=== PATIENT | male | born 1950 | race Caucasian/White ===

== ENCOUNTER 2020-08-14 18:07 | Outpatient (REF) | payer MEDICARE, SELFPAY ==
[2020-08-14 22:14] LABS: Anion Gap 8.4 mmol/L (3-11); BUN 22 mg/dL (7-18); CO2 25.6 mmol/L (21.0-32.0); CREATININE 0.77 mg/dL (0.70-1.30); Calcium 9.5 mg/dL (8.5-10.1); Calculated LDL 131 mg/dL (<100); Chloride 104 mmol/L (98-107); Cholesterol 227 mg/dL (<200); Glucose 88 mg/dL (74-106); HDL Cholesterol 64 mg/dL (40-60); Potassium 3.9 mmol/L (3.5-5.1); Sodium 138 mmol/L (136-145); Triglyceride 163 mg/dL (<150)
[2020-08-15 17:32] LABS: PSA, Diagnostic 0.7 ng/mL (0.0-4.5)
== END 2020-08-14 18:27 ==
LOC: NCHCN 18:07
PROVIDERS: PCP Emergency Medicine; Visit Provider Emergency Medicine
DX: I10 Essential (primary) hypertension (principal); C61 Malignant neoplasm of prostate
CPT/HCPCS: 80048; 80061; 84153

== ENCOUNTER 2022-06-25 13:59 | Outpatient (REF) | payer MEDICARE, SELFPAY | END 2022-06-25 14:00 | disposition home or self-care (01) | LOC: LBN 13:59 | PROVIDERS: PCP Nurse Practitioner Family; Visit Provider Physician Assistant | DX: L98.8 Other specified disorders of the skin and subcutaneous tissue (principal); H60.391 Other infective otitis externa, right ear | CPT/HCPCS: 87077; 87070; 87186; 87205 ==

== ENCOUNTER 2023-11-26 01:34 | Outpatient (CLI) | payer MEDICARE, SELFPAY ==
[2023-11-26 13:02] LABS: Calculated LDL 115 mg/dL (<100); Cholesterol 187 mg/dL (<200); HDL Cholesterol 49 mg/dL (40-60); Triglyceride 119 mg/dL (<150)
== END 2023-11-26 01:35 | disposition home or self-care (01) ==
LOC: LOS 01:35
PROVIDERS: PCP Nurse Practitioner Family; Visit Provider Nurse Practitioner Family
DX: Z13.6 Encounter for screening for cardiovascular disorders (principal)
CPT/HCPCS: 36415; 80061; 84153

== ENCOUNTER → 2023-12-09 12:53 | Outpatient (CLI) | payer MEDICARE, SELFPAY ==
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
== END ==
PROVIDERS: PCP Nurse Practitioner Family; Visit Provider Nurse Practitioner Family
DX: M25.561 Pain in right knee (principal); M25.551 Pain in right hip
CPT/HCPCS: 73562; 73502

== ENCOUNTER → 2024-03-02 08:08 | Outpatient (BNVA) | payer MEDICARE, SELFPAY | PROVIDERS: PCP Nurse Practitioner Family; Referring Provider Nurse Practitioner Family; Visit Provider Student in an Organized Health Care Education/Training Program | DX: M17.11 Unilateral primary osteoarthritis, right knee (principal); M70.61 Trochanteric bursitis, right hip; Z96.641 Presence of right artificial hip joint; V19.3XXA Pedal cyclist (driver) (passenger) injured in unspecified nontraffic accident, initial encounter; R26.2 Difficulty in walking, not elsewhere classified | CPT/HCPCS: 99204 ==

== ENCOUNTER 2024-03-27 01:47 | Outpatient (CLI) | payer MEDICARE, SELFPAY ==
[2024-03-27 11:26] LABS: HCT 43.9 % (40.0-50.0); HGB 14.7 g/dL (13.5-17.5); MCH 30.7 pg (27.0-33.0); MCHC 33.5 % (32.0-36.0); MCV 92 fL (80-95); MPV 9.1 fL (8.0-11.0); Platelet Count 239 10^3/uL (130-400); RBC 4.79 10^6/uL (4.36-5.78); RDW 12.7 % (11.8-14.1); RDW-SD 43.1 fL; WBC 6.41 10^3/uL (4.4-10.8)
[2024-03-27 12:13] LABS: Anion Gap 8.1 mmol/L (3-11); BUN 18 mg/dL (7-18); CO2 25.9 mmol/L (21.0-32.0); CREATININE 0.8 mg/dL (0.70-1.30); Calcium 9.1 mg/dL (8.5-10.1); Chloride 103 mmol/L (98-107); Estimated GFR 94.03 (mL/min/1.73m2); Glucose 112 mg/dL (74-106); Sodium 137 mmol/L (136-145)
== END 2024-03-27 01:48 | disposition home or self-care (01) ==
LOC: LBO 01:48
PROVIDERS: PCP Nurse Practitioner Family; Visit Provider Student in an Organized Health Care Education/Training Program
DX: M17.11 Unilateral primary osteoarthritis, right knee (principal); Z01.818 Encounter for other preprocedural examination
CPT/HCPCS: 36415; 80048; 85027; 99024

== ENCOUNTER 2024-03-27 11:39 | Outpatient (CLI) | payer MEDICARE, SELFPAY ==
--- NOTE | 2024-03-27 10:00 | DI.RAD_ITS ---
Exam(s) XR STANDING ALIGNMENT XR KNEE RT 1V EXAM: XR STANDING ALIGNMENT CLINICAL HISTORY: PRE OP R TKA. TECHNIQUE: 2D digital imaging was performed. Standing AP views were performed from the pelvis throu gh the ankles. COMPARISON: CR XR KNEE RT 3V AP,LAT,DO from 12/09/2023 CR XR HIP RT COMPLETE AP PELVIS from 12/09/2023 CR XR KNEE RT 1V from 03/27/2024 FINDINGS: BONES: No acute fracture is present. No bony destructive lesion is seen. Leg length discrepancy: No significant overall leg length discrepancy. JOINTS: Knees: Severe degenerative changes noted at the lateral femoral tibial joint of the right kne e. Multiple joint space loose bodies. Mild narrowing of the medial femoral tibial joint space of th e left knee. The ankle joints show mild degenerative changes.. Bilateral hip prostheses again noted. SOFT TISSUE: Heterotopic calcification noted around both hips. IMPRESSION: Severe degenerative changes of the right knee.. No significant leg length discrepancy. DATA REPOSITORY: RADIATION DOSE DELIVERED:
== END 2024-03-27 11:40 | disposition home or self-care (01) ==
LOC: DIORS 11:39
PROVIDERS: PCP Nurse Practitioner Family; Visit Provider Student in an Organized Health Care Education/Training Program
DX: M17.11 Unilateral primary osteoarthritis, right knee (principal); Z01.818 Encounter for other preprocedural examination
CPT/HCPCS: 36415; 80048; 85027; 99024; 73560; 77073

== ENCOUNTER 2024-04-04 06:05 | Day surgery (SDC) | payer MEDICARE, SELFPAY ==
[2024-04-04 06:23] VITALS: BP 183/80; PULSE 60; RESP 16; TEMP 36.7; O2SAT 98
[2024-04-04 06:29] VITALS: BP 163/76; PULSE 60; RESP 16; O2SAT 96
[2024-04-04] MEDS: Gabapentin 300 MG CAP PO (06:42)
[2024-04-04] MEDS: Celecoxib 200 MG CAP 400 MG PO (06:42)
[2024-04-04] MEDS: Acetaminophen 500 MG TAB 1000 MG PO (06:42)
--- NOTE | 2024-04-04 06:53 | W.ANESPRE ---
General Info Date of Service Date Performed: 04/04/24 Height: 5 ft 9 in Weight: 95.708 kg Body Mass Index (BMI): 31.1 Surgical Procedure: Operation Date: 04/04/24 07:40 Proposed Procedure Side Surgeon p Knee Total Arthroplasty w/Orthalign Right Min More MD Meds Allergies and Home Medications Allergies Allergy/AdvReac Type Severity Reaction Status Date / Time losartan (Losartan) AdvReac Intermediate FATIGUE Verified 04/04/24 06:20 Home Medication ?Medication ?Instructions ?Recorded Unknown [No Known Home Meds] 10/21/23 Current Visit Medications: Current Medications Generic Name Dose Route Start Last Admin Trade Name Freq PRN Reason Stop Dose Admin Acetaminophen 1,000 mg 04/04/24 06:00 04/04/24 06:42 Acetaminophen 500 Mg Tab PO 04/04/24 18:00 1,000 mg PREOP ANDRZEJ Administration Celecoxib 400 mg 04/04/24 06:00 04/04/24 06:42 Celecoxib 200 Mg Cap PO 04/04/24 18:00 400 mg PREOP ANDRZEJ Administration Gabapentin 300 mg 04/04/24 06:00 04/04/24 06:42 Gabapentin 300 Mg Cap PO 04/04/24 18:00 300 mg PREOP ANDRZEJ Administration Ringer's Solution 1,000 mls @ 80 mls/hr 04/04/24 06:00 IV 05/03/24 23:59 INFUSION ANDRZEJ Cefazolin Sodium/Dextrose 2 gm in 50 mls @ 100 mls/hr 04/04/24 06:00 Ancef Duplex IVPB 04/04/24 18:00 PREOP ANDRZEJ Tranexamic Acid/Sodium Chloride 1,000 mg in 100 mls @ 600 mls/hr 04/04/24 06:00 IVPB 04/04/24 18:00 PREOP ANDRZEJ IV Miscellaneous Supplies 1 each 04/04/24 06:00 Iv Access IV 05/03/24 23:59 DIRECTED ANDRZEJ Sodium Chloride 0 ml 04/04/24 06:00 Normal Saline Flush 10 Ml Syr IV 05/03/24 23:59 PRN PRN Sodium Chloride 0 ml 04/04/24 06:00 Normal Saline 10 Ml Vial IJ 05/03/24 23:59 DIRECTED PRN Sterile Water 0 ml 04/04/24 06:00 Water,Injection,Sterile 10 Ml Vial IJ 05/03/24 23:59 DIRECTED PRN PFSH Active Problems Active Problems: Problem Status Onset Code Trochanteric bursitis, right hip Acute M70.61 Osteoarthritis of right knee Chronic M17.11 Essential hypertension Acute 08/01/13 I10 Migraine Acute G43.909 Medical History Medical History COVID-19 Osteoarthritis Bilateral hip replacements Medical History Comments:: Daily THC Surgical History Surgical History Status post appendectomy H/O bilateral hip replacements Tobacco Smoking/Tobacco Use Status: Never Passive smoking exposure: No Second hand exposure: Yes Alcohol Alcohol Intake: former Year quit: 2023 Substance Use Substance use: Daily Substance use type: marijuana Vital Signs and Lab Results Vital Signs Most Recent Vital Signs in EMR: Most Recent Vital Signs Temp Pulse Resp BP Pulse Ox 36.7 C 60 16 163/76 H 96 04/04/24 06:23 04/04/24 06:29 04/04/24 06:29 04/04/24 06:29 04/04/24 06:29 Lab Results Blood Type / Crossmatch: No Data to Display Complete Blood Count: White Blood Count 6.41 10^3/uL (4.4-10.8) 03/27/24 11:21 Red Blood Count 4.79 10^6/uL (4.36-5.78) 03/27/24 11:21 Hemoglobin 14.7 g/dL (13.5-17.5) 03/27/24 11:21 Hematocrit 43.9 % (40.0-50.0) 03/27/24 11:21 Platelet Count 239 10^3/uL (130-400) 03/27/24 11:21 Complete Metabolic Panel: Sodium 137 mmol/L (136-145) 03/27/24 11:21 Potassium 4.0 mmol/L (3.5-5.1) 03/27/24 11:21 Chloride 103 mmol/L (98-107) 03/27/24 11:21 Carbon Dioxide 25.9 mmol/L (21.0-32.0) 03/27/24 11:21 BUN 18 mg/dL (7-18) 03/27/24 11:21 Creatinine 0.8 mg/dL (0.70-1.30) 03/27/24 11:21 Est GFR (CKD-EPI 2020) 94.03 (mL/min/1.73m2) 03/27/24 11:21 Calcium 9.1 mg/dL (8.5-10.1) 03/27/24 11:21 Glucose 112 mg/dL (74-106) H 03/27/24 11:21 Liver Function Panel: No Data to Display Coagulation Panel: No Data to Display Cardiac Panel: No Data to Display Arterial Blood Gas: No Data to Display Venous Blood Gas: No Data to Display Pancreas Panel: No Data to Display Thyroid Panel: No Data to Display Infectious Disease: No Data to Display Blood Cultures: No Data to Display Toxicology Panel: No Data to Display Anesthesia Assessment and Plan Anesthesia History Personal History: No History of Anesthesia Complications Family History: No Family History of Anesthesia Complications Exercise Tolerance Exercise Tolerance: Metabolic Equivalents>4 Pertinent Negatives Pertinent Negatives: No Symptoms of GERD Cardiac & Pulmonary Exam Cardiac Exam: Normal S1/S2 Heart Sounds Pulmonary Exam: Clear Bilateral Breath Sounds Implantable Cardiac Device Does patient have a Pacemaker or an ICD?: No Airway Exam Known Difficult Airway: No Mallampati Class: 2 Mouth Opening: Normal (> 3cm) Thyromental Distance: Greater than 3 cm Neck Range of Motion: Full ROM Neck Circumference: Normal Teeth Condition: Normal Dentition ASA Classification ASA Score: ASA 2 Emergency Case?: No NPO Status NPO Status: NPO Clears >2 hours, Solids >8 hours Anesthesia Plan Resuscitation Status: Full Code Anesthesia Technique: Spinal Anesthesia Airway Planned: Natural Airway Pain Management: Surgeon and patient request nerve block Monitors Used: Standard Monitors
[2024-04-04 06:54] VITALS: BMI 31.1
--- NOTE | 2024-04-04 07:10 | DSE_ITS ---
Date of service: 04/04/24 Time of Service: 07:14 Discharge Plan Disposition Patient Disposition: Home Condition: Good Discharge Details Reason For Visit: Right knee DJD Attending Provider: Min More Primary Care Provider: Eddie Garza Home Meds and New Rx's Prescriptions: New celecoxib [Celebrex] 200 mg capsule 200 mg PO BID PRNQty: 60 0RF Rx Instructions: Take one tablet twice daily for pain and inflammation aspirin 81 mg tablet,delayed release (DR/EC) 81 mg PO BID 30 Days Qty: 60 0RF acetaminophen 500 mg tablet 1,000 mg PO Q8H PRN Qty: 90 0RF Rx Instructions: Take two tablets up to every 8 hours as needed for pain pantoprazole 40 mg tablet,delayed release (DR/EC) 40 mg PO DAILY Qty: 14 0RF dexamethasone 4 mg tablet 4 mg PO DAILY Qty: 2 0RF Rx Instructions: Take one tablet once daily for two days docusate sodium [Colace] 100 mg capsule 100 mg PO BID Qty: 30 0RF gabapentin 300 mg capsule 300 mg PO QHS Qty: 14 0RF Rx Instructions: Take one tablet at bedtime oxycodone 5 mg tablet 5 mg PO Q4H PRNQty: 18 0RF Rx Instructions: Take one tablet up to every 4 hours as needed for severe postoperative pain Discharge Instructions Additional Instructions: Total Knee Discharge Instructions Activity: The most important activity is to walk and to work on gentle motion (both flexion and extension). You should try to take short walks a few times a day. It is important that when resting you work on keeping the knee straight. Avoid putting a pillow behind the knee as this will encourage flexion. Work on range of motion exercises as provided by Physical Therapy. - Start outpatient physical therapy within 2 weeks. - You should wear the KENJI hose on both legs for 2 weeks. You may remove these at night. You may also use any compression sock in place of the KENJI hose. - Utilize [employer] to review exercises, see videos on exercises and obtain basic information pertaining to your surgery and your recovery. Dressing: Remove the Sanjay wrap by 2 days after your surgery and put on the KENJI stocking given to you from the hospital. Keep the surgical dressing (underneath the SANJAY wrap) in place for at least one week. After the first week it may be removed and replaced with light gauze and tape or nothing. The wound and dressing may get wet after 3 days but avoid soaking the dressing or otherwise it will need to be changed. Many people prefer covering the dressing with cling wrap (saran wrap) to minimize it from getting soaked. If it gets wet, just pat dry. If it starts to peel off then it will need to be changed. Medications: - You should take Tylenol and anti-inflammatory Celebrex as your primary pain control medications. If the Celebrex is too expensive or not covered, please call the office for another alternative (Advil/Ibuprofen or Naproxen/Aleve) - You have been prescribed a stronger pain medication Oxycodone for breakthrough pain, take as needed as prescribed. - You have also been prescribed a stomach acid reduction agent Pantoprozole to help reduce stomach acid and reflux. - You have been prescribed Gabapentin to take at night for restlessness and nerve pain. - You will be taking Aspirin 81mg twice a day for DVT prevention unless instructed otherwise. - You have also been prescribed Decadron to take to control post-operative nausea and pain. You will start this tomorrow. - If you have constipation you should take Colace (which has been prescribed) or Miralax (which is available [id number]). It takes most people 3-4 days to have a bowel movement. Follow-up: 2 weeks If you have any acute concerns or questions, please do not hesitate to contact the office at [phone]. You may contact Dr. More with any questions after hours through the hospital at [phone] or on his cell phone at [phone]. Stand Alone Forms: Anes.Nerve Block Instructions, Maddie Whitehead ([facility]) Referrals: Min More MD [ [facility] STAFF PHYSICIAN] - 04/17/24 10:15 am Equipment/Supplies: Walker Activity:: Elevate Remove Dressings/Wound Care:: Do Not Remove Shower/Bathe:: Cover Diet:: As Tolerated Discharge Orders Discharge Orders: Discharge Order (Routine); Ordered 04/04/24 Ordered By: Iveth Valentin Discharge Data Discharge Date/Time-TO BE ENTERED AT DEPARTURE: 04/04/24 11:40 DS: Summary Time Spent with Patient providing and/or coordinating discharge services: Less than 30 minutes Status at Discharge Functional status at discharge: uses cane/walker Overall status at discharge: patient is progressing back to baseline Mental Status: mental status grossly normal Speech and Movement: speech and movement normal Mood: congruent mood Affect: normal affect Quality:SDOH Health Related Social Needs: Health related social needs inadequate housing Health related social needs details none Exam Psych Mental Status: mental status grossly normal Speech and Movement: speech and movement normal Mood: congruent mood Affect: normal affect DS: Data Vitals/I&O Vitals and I&O: Vital Signs Temperature 98.1 F 04/04/24 06:23 Pulse 60 04/04/24 06:29 Pulse Rhythm Regular 04/04/24 06:23 Respiratory Rate 16 04/04/24 06:29 Respiratory Depth Normal 04/04/24 06:23 Blood Pressure 163/76 H 04/04/24 06:29 Blood Pressure Mean 105 04/04/24 06:29 Blood Pressure Position Supine 04/04/24 06:29 Pulse Oximetry 96 04/04/24 06:29 Oxygen Delivery Method Room Air 04/04/24 06:29 Oxygen Flow Rate 0 04/04/24 06:29 Pain Level 0 04/04/24 06:23 Intake & Output 04/03/24 04/03/24 04/04/24 11:59 23:59 11:59 Weight 211 lb 211 lb PFSH All Active Problems (Updated 04/05/24 @ 09:40 by Clem Conrad RN) History of total right knee replacement (Acute 04/04/24) Trochanteric bursitis, right hip (Acute) Essential hypertension (Acute 08/01/13) Does not want treatment Migraine (Acute) resolved - discontinued ETOH use ~7 months Medical History (Updated 04/05/24 @ 09:40 by Clem Conrad RN) COVID-19 Osteoarthritis Bilateral hip replacements Surgical History (Updated 04/05/24 @ 09:40 by Clem Conrad RN) Status post appendectomy H/O bilateral hip replacements Family History Mother , 70'S No problems noted. Father , LATE 80'S No problems noted. Sister No problems noted. Sister Alcohol abuse Substance abuse Sister No problems noted. Son No problems noted. Social History (Updated 10/29/23 @ 10:25 by Marcelina Ordonez Smoking/Tobacco Use Status: Never Second Hand Exposure: Yes Smoking risk assessment performed?: Yes Alcohol Intake: former Year quit: 2023 Drug use: Daily Substance use type: marijuana Caregiver/Support person: No Household members: spouse Housing: house Communication Needs: None Do you need help understanding health information?: Never Pets and animals: Yes Pets and animals: cat(s) and dog(s) Sexually active: Yes Do you think of yourself as: straight/heterosexual Current gender identity: male What is your relationship status?: How often do you talk on the phone with friends or family?: three or more times per week How often do you get together with friends or relatives?: three or more times per week Do you belong to any clubs or organized social groups?: no Panel score (0-1 are the most socially isolated patients): 2 What type of physical activity do you participate in: walking and bicycling Duration: 60-90 minutes/day Frequency: 3-4 times per week Morena/Protestant: No preference Special morena needs: No Seatbelt use: always Helmet use: Yes Helmet use: always Drive intox or ride 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
[2024-04-04] MEDS: Lactated Ringers 1,000 ML 80 ML IV (07:15)
[2024-04-04 07:19] VITALS: BP 161/70; PULSE 58; RESP 15; TEMP 36.2; O2SAT 98
[2024-04-04] MEDS: ceFAZolin 2 GM/50 ML BAG IVPB (07:29)
[2024-04-04] MEDS: TRANEXAMIC ACID/SOD. CHL. 1,000 MG/100 ML BAG 600 MG IVPB (07:40)
--- NOTE | 2024-04-04 08:06 | W.ANESNERVE ---
Nerve Block Single Injection Procedure Date and Time Date Performed: 04/04/24 Procedure Start: 07:10 Location Where Procedure Performed Procedure Location: Day Surgery Unit Reason Performed: Postoperative Analgesia Requesting Provider: Min More Timeout Performed Timeout Performed: Yes Monitoring Used ECG, Blood Pressure, SpO2 and See EMR for corresponding vital signs Sterility Sterility: Hand Hygiene, Surgical Cap, Surgical Mask, Sterile Gloves and Chlorhexidine Sedation Given During Procedure Sedation Given (Indicate Dose Given): No Sedation given Patient Mental Status Patient Mental Status: Awake Nerve Block 1st Nerve Block: Laterality: Right Block Type: Adductor Canal Ultrasound Image Saved?: Yes Needle / Catheter Used: 100mm SonoPlex II Local Anesthetic Bolus (Indicate Dose Given): Lidocaine used for local infiltration of skin, Injected in 3-5ml increments after negative blood aspiration, Bupivacaine 0.25% Dose:: 10ml and Exparel Dose:: 10ml Additives (Indicate Dose Given): None Ultrasound: Sterile probe cover and gel used Nerve Stimulator: Not Used Paresthesia: None Procedure Tolerated: No Complications and Patient tolerated well Procedure Outcome: Successful Performed By: Antoni House
[2024-04-04 09:25] VITALS: BP 173/67; PULSE 53; RESP 16; TEMP 36.3; O2SAT 98
--- NOTE | 2024-04-04 09:35 | W.PM.OP ---
Date of service: 04/04/24 Time of Service: 07:35 Operative Note Operative Note DATE OF PROCEDURE: 04/04/24 PRE-OP DIAGNOSIS: Right Knee Arthritis POST-OP DIAGNOSIS: same PROCEDURE: Right Total Knee Arthroplasty with Intraoperative Navigation SURGEON: Min More FINANCIAL AID COORDINATOR: Iveth Valentin ANESTHESIA TYPE: Spinal Refer to Anesthesia Record ESTIMATED BLOOD LOSS: 150 PATHOLOGY: none sent COMPLICATIONS: None Patient was transported to: PACU Patient's condition: stable Implants: 1. Depuy Attune Cruciate Retaining Femoral Component, Size 8 2. Depuy Attune Fixed Bearing Tibial Component, Size 8 3. Depuy Attune 8x6 CR, FB Poly 4. Depuy Attune Patellar Component, Size 38 Indications: I have seen Bong in clinic for symptoms of knee arthritis, confirmed with radiographic findings. He has exhausted nonoperative methods and was having significant limitations in daily function and desired better function and less pain. I discussed the technical details of a knee replacement. I explained the risks of the procedure to include, but not limited to, bleeding, infection, pain, stiffness, fracture, damage to nerves and vessels, damage to muscles and tendons, loosening, need for repeat procedure, blood clot and cardiopulmonary demise. Despite these risks, Bong elected to proceed. Findings: There was significant signs of arthritis throughout the knee involving all 3 compartments with notable wear posterolaterally. Procedure Description: Bong was greeted in the preoperative holding area where the correct side was identified and marked. The consent was reviewed with the patient and signed. The history and physical was updated. All questions were answered. Preoperative mediacations were administered: Acetaminophen 1000mg, Celebrex 400mg, Gabapentin 300mg, and Oxycontin 10mg. An adductor canal block was then administered by the anesthesia team in the [facility]. He was taken back to the operating room. A spinal anesthestic was then administered. The patient was placed into the supine position on the operating room table. A nonsterile tourniquet was placed high onto the leg but only used for cementing. Posts were placed for positioning during the procedure. All bony prominences were well padded. Prophylactic antibiotics in the form of Cefazolin were administered. 1g of Tranxemic Acid was given intravenously within 30 minutes of incision. The right leg was then prepped with Chloraprep and draped in a standard fashion with impervious stockinette and extremity drape with Iodine impregnated skin protection. A timeout to confirm correct identity, side and site, procedure, allergies, anesthesia, and medical concerns was performed. With the knee in some flexion, a midline incision was made overlying the knee. Full thickness skin flaps were raised once the extensor mechanism was encountered. These were raised medially and laterally. Any bleeding was controlled with electrocautery. Once the extensor mechanism was fully exposed, a medial parapatellar arthrotomy was performed in a flexed position. All bleeding from the arthrotomy and the geniculate arteries was coagulated. A medial subperiosteal peel was performed with electrocautery to the midcoronal plane. The fat pad was removed while keeping the patellar tendon protected. The anterior distal femur synovium was removed for later visualization. The ACL and PCL were resected and the anterior horn of the lateral meniscus was transected. The knee was then flexed with the patella everted. Large osteophytes from the tibia were removed. Large osteophytes from the femur were removed. A single starting pin was then placed 1cm anterior to the PCL insertion and the notch in the direction of the femoral head. The OrthoAlign device was applied over the pin. It was oriented to be in line with the epicondylar axis and the trochlear groove. It was then pinned into place. The navigation computer was then turned on and calibrated. The distal femur cut was set at 0.5 degrees varus and 3.5 degrees flexion. The distal femur cutting guide then was positioned for a 9mm cut. The distal femur was cut with an oscillating saw while protecting the soft tissues. The tibia was then addressed. The OrthoAlign device was placed over the tibial tubercle and medial tibia and secured into position. Once again, OrthoAlign was calibrated and then set for a 0 degree varus/valgus cut and 5.5 degrees of posterior slope. With this locked into position, the cut thickness stylus was used to assess cut thickness. The posterolateral side, most involved side, was set for a 4mm cut. This was then held in position and pinned into place with 2 additional pins and a cross pin for stability. The medial and lateral collateral ligaments were protected and the cut was performed. With this completed, it was assessed and noted to be of appropriate dimensions. The guide and OrthoAlign was removed. A spacer block was inserted and the knee was brought into extension. The 6mm spacer block provided full extension, without hyperextension and with stability of both the medial and lateral collateral ligaments was assessed. The pins from the femur and the tibia were then removed. The Ortholign balancing device then was utilized. This showed a balance In extension of 18 mm. The knee was brought up into flexion where there was noted to be a balance gap of about 13 mm. Thus the posterior cut was set to 5 mm and pins were placed with the implant specific jig. The distal femur was then sized. The anterior stylus was placed onto the lateral ridge of the anterior femur. This indicated a size 8 femur. The external rotation of the guide was adjusted to 3 degrees to match the epicondylar axis, perpendicular to Power?s line. The 4-in-1 cutting guide was the placed. The posterior medial femur cut was evaluated and appeared of good thickness. The spacer block was inserted underneath the cutting guide and stability was confirmed in 90 degrees of flexion. An mikey wing was used to confirm appropriate position of the anterior cut to avoid notching. This cutting guide was ensured to be flush on the cut surface and then pinned into place with headed pins. While protecting the soft tissues, quad tendon, and collateral ligaments, the anterior and posterior cuts were performed with a saw. The central two pins were removed and the posterior and anterior chamfers were cut next. The notch-cutting guide was placed. This was pinned to lateralize the femoral component as much as possible while keeping it flush on the cut surface. This was then pinned into position. A reciprocating saw was used to make the notch cut. A rasp smoothed the cut surfaces. A trial posterior stabilized femoral component was then inserted, impacted down to the cut surfaces, and the lug holes were drilled. A provisional trial tibial component was placed and the knee was brought through range of motion. There was noted to be excellent extension and flexion. There was no significant instability. The patella was tracking without thumbs. The tibial cut surface was fully exposed. The medial and lateral menisci were removed. The tibia was then sized as a 4. The tibia had been previously marked during trialing to correspond to the center of the tibial component to help with rotation. The trial was aligned to this candis, approximately rotated to the medial 1/3rd of the tibial tubercle. The trial was pinned into place. The tibia was prepared with a reamer and a keel punch. The knee was then brought into extension and the patella was measured as 28mm. Using the patellar clamp and cut guide, this was resected to a flat surface with at least 13mm of thickness remaining. The size 38 patella fit the best. This was oriented and then clamped into position. The lugs were drilled. The trial components were removed. The final components, except for the polyethylene were opened on the back table. The periosteal and capsular tissues, especially posteriorly, around the knee were then systematically injected with a periarticular cocktail consisting of 246mg of Ropivacaine, 0.5mg of Epinephrine, 0.08mg of Clonidine, and 30mg of Ketorolac, diluted to 100cc. The tourniquet was then inflated to 275mmHg. The knee was thoroughly irrigated with a pulse lavage and dried. On the back table, with the implants opened, the cement was mixed. 2 batches of antibiotic laden cement were prepared with vacuum assistance. After the cement was ready a small amount was placed on to the back side of the tibial component at the keel. A small amount was placed onto the posterior flange of the femur. Cement was manual pressurized and impregnated into the cut surface of the tibia. The tibial component was then inserted into the cut surface and impacted into position. Excess cement was removed and the component was reimpacted. Again, excess cement was removed and our attention was then turned to the femur. The femoral cut surface was once again dried and cement was manually impacted into the cut surface. The femoral component was lined with the lug holes and impacted. Excess cement was removed. It was ensured to be down against the cut surface. The trial polyethylene was then inserted and the leg was brought out into full extension for the duration of the cement curing process, approximately 15min. Cement was lastly manually impacted into the cut surface of the patella and the patellar button was clamped into position and held. During this process attention was turned to the gutters of the knee and for all interfaces for any excess cement. The knee was then thoroughly irrigated with Surgiphor Betadine solution. It was allowed to sit in the knee for 3 minutes before being irrigated out with saline. After the cement had finally cured, approximately 15min, the clamp was removed from the patella and the knee was taken through range of motion. A size 6mm polyethylene component provided the best range of motion and stability with less than 2mm gapping with medial and lateral stress and full extension without significant hyperextension. The patella was tracking with a no-thumbs technique. The trial poly was removed and once again the knee was checked for any loose, excess, or errant cement. The poly component was then inserted into position after cleaning and drying the tibial tray. The capsule was then reapproximated with a No. 1 Vicryl at multiple locations. The capsule was finally closed with a No. 2 Stratafix, barbed suture. The tourniquet was then released and the arthrotomy appeared watertight without significant bleeding. The second dosing of 1g TXA was started. Deep tissues were then reapproximated with 0 Vicryl and 2-0 Vicryl. The skin was closed with a running 3-0 Monocryl in a subcuticular fashion. This was reinforced with skin glue. A Mepilex silver dressing was applied along with a [id number] BEBE wrap. A CryoCuff was applied. Bong was transferred to the hospital bed without difficulty an suffering no apparent complication. He has a good prognosis. Physical therapy will start today and without restrictions, weight-bearing as tolerated. Aspirin 81mg BID will be used for DVT prophylaxis.
[2024-04-04 10:00] VITALS: BP 176/73; PULSE 54; RESP 17; TEMP 36.3; O2SAT 97
--- NOTE | 2024-04-04 11:06 | IN_ITS ---
PT Notes Visit Reasons: Right knee DJD Physical Therapy Day Surgery Initial Evaluation Date:04-04-2024 Referring Doctor: Dr More PT Orders: PT CONSULT: PT eval s/p Ortho surgery Precautions: Standard, Activity as tolerated Patient Profile/Admitting Diagnosis: Pt is 73 yo male referred s/p elective rig ht TKA by Dr More on 04-04-24 with only local block anesthetic. Post op uncomplicated. PMHX: R hip trochanteric bursitis, HTN, Migraine, OA right knee Social History/Home Situation:lives with in split level home with 3 sets of 6 steps with 1 rail to enter. He is an avid cyclist, very active. Pt independent without AD ambulation, independent ADL, driving. assists with cooking independent yard work. Equipment Owned/DME: crutches and cane Subjective: Pt reports he was awake for the surgery and it went well. He reports some discomfort in his right dorsal foot. (located at seam of the clover wrap. Nursing re wrapped the clover with positive effect) Objective: General Observation: awake alert male semireclined on stretcher with cryocuff in place. at bedside. Pt agreeable to participate. Mental Status: A+ OX4 Pain: right knee 2/10 ROM: BUE and LLE : WNL Right Lower Extremity: hip and ankle WNL; knee 3-102 degrees Strength: [] Right Upper Extremity: 5/5 Left Upper Extremity: 5/5 Right Lower Extremity: hip and ankle >3/5, Quad strong quad set, limited SLR x 10 without lag, hamstring 3-/5 Left Lower Extremity: 5/5 Sensation: intact throughout except right knee diminished to light touch dull feeling Bed Mobility/Transfers: Supine to sit Independent Sit to stand Independent Stand to sit Independent Bed to chair Independent Gait: Independent with SPC , crutch or FWW 200 feet reciprocal pattern demonstrating diminished knee flexion right during swing phase, early heel off on right Balance: [] Static Sitting: Normal Dynamic Sitting: Normal Static Standing: Good + Dynamic Standing: Good Special Tests: [] Mobility Limitations Standardized Measure [] [facility] AM-PAC 6 clicks Basic Mobility Inpatient Short Form: [] Raw Score: 24 CMS Score: 0 % Informed Consent/Education: Patient instructed in purpose of PT consult. Packet containing TKA exercise protocol has been given to patient. Education and training on initial set of exercises that can be done at home have been completed with patient. Pt instructed to utilize crutches at home then progress to cane as appropriate. Assessment: Patient presents with clinical signs and symptoms consistent with current/admitting diagnoses that have resulted to mobility limitations, gait instability, generalized weakness, and impairment of motor control as demonstrated by the following impairment level findings: 1. Decreased strength to right knee major muscle groups 2. Impaired standing balance 3. Limitation of joint range of motion in right knee Impairments are contributing to the following functional limitations: 1. Inability to safely ambulate without assistive device 2. Increase completion time for mobility ADL performance 3. Increased fall risk Patient is assessed as amoderate complexity based on the following: History: 73-year-old male with impairment level findings, functional limitations, and past medical history as indicated above Examination: Demonstrable impairment in strength, balance, and mobility level with underlying impairments and functional limitations as documented above Presentation: stable Decision Making: low Goals: N/A. Plan of Care/Treatment Plan: N/A. DISCHARGE RECOMMENDATIONS: Home with Outpatient PT as scheduled TREATMENT CODE/TIME: 29754, [id number]/ [id number] Thank you for the opportunity to participate in the care of this patient. Please sign an return this page within 30 days if you agree with the above POC. Thank you! Physician Signature Date [facility]
--- NOTE | 2024-04-04 11:35 | W.ANESPOSTOP ---
Postoperative Evaluation Date, Time and Location Date Performed: 04/04/24 Time Performed: 10:05 Patient Location: Day Surgery Unit Vital Signs Most Recent Imported Vital Signs: Most Recent Vital Signs Temp Pulse Resp BP Pulse Ox 36.3 C L 54 L 17 176/73 H 97 04/04/24 10:00 04/04/24 10:00 04/04/24 10:00 04/04/24 10:00 04/04/24 10:00 Pain Score Most Recent Pain Score: Most Recent Pain Score Pain Level 0 04/04/24 10:00 Assessment Mental Status: Awake (Alert & Oriented to Patient Baseline) Airway and Respiratory Function: Patent airway with normal (patient baseline) respiratory exam Cardiovascular Function: Hemodynamically Stable Hydration Status: Adequately Hydrated Nausea & Vomiting: No Nausea or Vomiting Pain: Pt. Denies Any Pain Peripheral Nerve Block: Regional nerve block not resolved at time of post operative discharge
== END 2024-04-04 11:40 | disposition home or self-care (01) ==
PROVIDERS: PCP Nurse Practitioner Family; Visit Provider Student in an Organized Health Care Education/Training Program
PROC: (CPT 27447; principal; 2024-04-04 07:30)
DX: M17.11 Unilateral primary osteoarthritis, right knee (principal); I10 Essential (primary) hypertension; G43.909 Migraine, unspecified, not intractable, without status migrainosus
CPT/HCPCS: 20985; 27447; 76942; 97162; 97530; C1776; C9290; J0665; J0690; J1100; J2250; J2401; J2405

== ENCOUNTER 2024-04-17 11:48 | Outpatient (CLI) | payer MEDICARE, SELFPAY ==
--- NOTE | 2024-04-17 10:15 | DI.RAD_ITS ---
Exam(s) XR KNEE RT 1V XR STANDING ALIGNMENT EXAM: XR STANDING ALIGNMENT and XR knee RT 1 V CLINICAL HISTORY: 1ST POST OP S/P R TKA. TECHNIQUE: 2D digital imaging was performed. Five images were obtained. COMPARISON: CR XR STANDING ALIGNMENT from 03/27/2024 CR XR KNEE RT 1V from 03/27/2024 FINDINGS: BONES: Patient has bilateral total hip replacements. The patient now has a right total knee replacem ent. The orthopedic hardware appears in good position. No suspicious lucencies are seen about the o rthopedic hardware. There is an enthesophyte at the anterior patella. Moderate degenerative changes are seen in the left knee characterized by joint space narrowing and osteophytes. The findings are most marked in the medial femoral tibial joint. The ankles are well maintained.There is no significa nt leg length discrepancy. SOFT TISSUE: There is soft tissue swelling around the right knee likely reflecting the recent joint r eplacement. Vascular calcifications are present. IMPRESSION: Right total knee replacement. DATA REPOSITORY: RADIATION DOSE DELIVERED:
== END 2024-04-17 11:49 | disposition home or self-care (01) ==
LOC: DIORS 11:48
PROVIDERS: PCP Nurse Practitioner Family; Referring Provider Nurse Practitioner Family; Visit Provider Student in an Organized Health Care Education/Training Program
DX: Z96.651 Presence of right artificial knee joint (principal); Z47.1 Aftercare following joint replacement surgery
CPT/HCPCS: 99024; 73560; 77073

== ENCOUNTER → 2024-05-15 08:25 | Outpatient (BNVA) | payer MEDICARE, SELFPAY | PROVIDERS: PCP Nurse Practitioner Family; Referring Provider Nurse Practitioner Family; Visit Provider Student in an Organized Health Care Education/Training Program | DX: Z47.1 Aftercare following joint replacement surgery (principal); Z96.651 Presence of right artificial knee joint | CPT/HCPCS: 99024 ==

== ENCOUNTER → 2024-06-26 08:28 | Outpatient (BNVA) | payer MEDICARE, SELFPAY | PROVIDERS: PCP Nurse Practitioner Family; Referring Provider Nurse Practitioner Family; Visit Provider Student in an Organized Health Care Education/Training Program | DX: Z47.1 Aftercare following joint replacement surgery (principal); Z96.651 Presence of right artificial knee joint | CPT/HCPCS: 99024 ==

== ENCOUNTER 2024-12-13 02:22 | Outpatient (CLI) | payer MEDICARE, SELFPAY ==
[2024-12-13 13:05] LABS: Calculated LDL 133 mg/dL (<100); Cholesterol 196 mg/dL (<200); HDL Cholesterol 48 mg/dL (>or=40); Hemoglobin A1C 5.3 % (<5.7); Triglyceride 77 mg/dL (<150)
[2024-12-13 20:07] LABS: PSA, Screening 0.8 ng/mL (<=6.5)
== END 2024-12-13 02:23 | disposition home or self-care (01) ==
LOC: LOS 02:23
PROVIDERS: PCP Nurse Practitioner Family; Visit Provider Nurse Practitioner Family
DX: Z13.6 Encounter for screening for cardiovascular disorders (principal); Z13.1 Encounter for screening for diabetes mellitus; Z12.5 Encounter for screening for malignant neoplasm of prostate
CPT/HCPCS: 36415; 80061; 84153; 83036

== ENCOUNTER 2025-03-19 04:46 | Inpatient (IN) | payer MEDICARE, SELFPAY ==
[2025-03-19] VITALS (49 sets, daily range): BP systolic 123–159; BP diastolic 47–70; PULSE 60–79; RESP 15–28; TEMP 36.3–36.4; O2SAT 88–97
--- NOTE | 2025-03-19 04:45 | RT.EKG_ITS ---
APPROVED REPORT Exam: Resting ECG Reason for Exam: Chest pain Patient Location: E HR:79 bpm ECG Measurements Heart Rate 79 AXIS OH 219 P -4 QRSd 80 QRS 12 QT 368 T 24 QTc 421 Conclusion Sinus rhythm...normal P axis, V-rate 60- 99 Borderline prolonged OH interval...OH >212, V-rate 50- 90 Anterior infarct, old...Q >40mS, abnormal ST-T, V2-V5 Normal [place] No acute ST changes
--- NOTE | 2025-03-19 04:50 | ED.GENADUL_ITS ---
Discharge Plan Discharge Details Chief Complaint: Chest/Rib Primary Care Provider: Eddie Garza ED Provider: Yon Zuñiga [place] Meds and New Rx's Prescriptions: No Action celecoxib [Celebrex] 200 mg capsule 200 mg PO BID PRN (Reason: pain) Qty: 60 1RF Rx Instructions: Take one tablet twice daily for pain and inflammation HPI General Mode of arrival: ambulatory . Date/Time Provider Initiated Documentation: 03/19/25 04:50 . Limitations to Documentation: no limitations . Information obtained by: patient and RN notes reviewed . HPI Narrative: Patient presents to ED with right lateral lower chest pain. Patient reports pain began last evening. He has been very uncomfortable and had difficulty sleeping. Pain is worse with breathing but not really with movement. Does not feel like he is getting a full breath. He reports having an illness that began around 08 March. He reports having headache, fatigue, weakness, abdominal discomfort and constipation. Did not really have cough, congestion, shortness of breath with that. He was actually bedridden for about 5 days. Finally started feeling better over the weekend. He then developed this pain last night. Denies having any real abdominal pain, nausea or vomiting. Denies any left-sided chest pain or radiation of his pain. Related Data Home Medications ?Medication ?Instructions ?Recorded ?Confirmed celecoxib 200 mg capsule (Celebrex) 200 mg PO BID PRN pain #60 caps 07/26/24 10/25/24 Previous Rx's ?Medication ?Instructions ?Recorded celecoxib 200 mg capsule (Celebrex) 200 mg PO BID PRN pain #60 caps 07/26/24 Allergies Allergy/AdvReac Type Severity Reaction Status Date / Time losartan (Losartan) AdvReac Intermediate FATIGUE Verified 03/19/25 04:56 Exam Narrative Exam Narrative: Const: WDWN male in NAD. VS per triage. HEENT: NC/AT. Normal facial exam. Neck: Supple. Trachea midline. Lungs: Normal respiratory effort. Lungs are clear. Cor: RRR without murmur. Good radial pulses. No chest wall tenderness. GI: Soft/ND/NT. Neuro: A+O x 3. Normal speech, mentation, gait. Cranial nerves II - XII grossly intact. No gross motor or sensory deficit. Ext: No C/C/E. No calf tenderness. Medical Decision Making Patient presenting to ED with right lateral lower chest pain. Pain is pleuritic in nature. His vital signs are reassuring. His lungs are clear. No real tenderness in the right upper quadrant at least not consistently. Just getting over some sort of illness that laid him up in bed for a while. Pain is nonradiating. Denies having any GI symptoms. An EKG was obtained at triage. This is sinus rhythm with borderline prolonged PA, no acute ST changes per my read. I would have concern for PE, pneumonia given recent illness. Less likely seems to be gallbladder related. Also less likely to be kidney related. Will place IV and obtain labs including troponin and abdominal labs. Will proceed with CTA of the chest as well as CT abdomen/pelvis given the area of his pain. Took NSAID prior to coming in so we will give IV acetaminophen and fluids. Patient's laboratory studies significant for white count of 12.8, hemoglobin 12.7, normal platelets at 322. His VBG shows some mild hyperventilation with a pH of 7.44 and pCO2 of 36. Lactate is normal at 1. Chemistries and liver function unremarkable. Initial troponin positive at 715. Received a call from radiology with CT report. Patient noted to have bilateral pulmonary emboli at the subsegmental level. There is no evidence of right heart strain. Also has some groundglass opacities present as well. There is also areas of decreased enhancement in the left kidney which potentially could represent infarcts versus pyelonephritis versus neoplasm. Patient's urinalysis is completely normal. A Fluvid is negative. His repeat troponin is relatively flat at 733. I have started him on a heparin drip. He remains hemodynamically stable and seems comfortable after the IV acetaminophen. Discussed with hospitalist. Consult placed to [facility]. Patient will be signed out to oncoming ED provider Dr. Benitez pending consult and disposition. Lab Data Lab results reviewed: Yes I reviewed the patient's lab results. Lab results narrative: see [facility] ECG Data Attestation: I personally reviewed and interpreted this ECG (s) as follows: Prior ECG tracings: not available for review Interpretation: see EKG/[facility] PFSH All Active Problems Trochanteric bursitis, right hip (Acute) Essential hypertension (Acute 08/01/13) Does not want treatment Migraine (Acute) resolved - discontinued ETOH use ~7 months Medical History COVID-19 Osteoarthritis Bilateral hip replacements Surgical History History of total right knee replacement (04/04/24) Status post appendectomy H/O bilateral hip replacements Family History (Updated 10/25/24 @ 11:04 by Malenakayleen Davis) Mother , age 72 No problems noted. Father , age 87 No problems noted. Sister No problems noted. Sister Alcohol abuse Substance abuse Sister No problems noted. Son No problems noted. Maternal Grandmother , age 96 No problems noted. Maternal Grandfather , age 50 Tuberculosis Paternal Grandmother , age 75 No problems noted. Paternal Grandfather , age 67 No problems noted. Social History Smoking/Tobacco Use Status: Former Tobacco Use Quit Date: 07/19/89 Second Hand Exposure: Yes Smoking risk assessment performed?: Yes Alcohol Intake: former Year quit: 2023 Drug use: Daily Substance use type: marijuana Counseling given: No Adopted: No Caregiver/Support person: No Household members: spouse Housing: house Number of Children: 3 number of grandchildren: 7 Communication Needs: None Education Level: college Details: two years Do you need help understanding health information?: Rarely current occupation: Retired<3 Pets and animals: Yes Pets and animals: cat(s) and dog(s) Sexually active: Yes Do you think of yourself as: straight/heterosexual Current gender identity: male What is your relationship status?: How often do you talk on the phone with friends or family?: twice per week How often do you get together with friends or relatives?: twice per week How often do you attend mosque or church services?: 1-3 times per year Do you belong to any clubs or organized social groups?: no Panel score (0-1 are the most socially isolated patients): 2 What type of physical activity do you participate in: bicycling and other Details: skiing Duration: 60-90 minutes/day Frequency: 3-4 times per week Morena/Tenriism: [employer] Special morena needs: No Agree to transfusion: Yes Seatbelt use: always Helmet use: Yes Helmet use: always 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
--- NOTE | 2025-03-19 05:00 | DI.CT_ITS ---
Exam(s) CT CHEST PE ABD PELVIS W EXAM: CT CHEST PE ABD PELVIS W CLINICAL HISTORY: right side chest/abd pain. TECHNIQUE: Imaging Protocol: Axial CT angiography was performed with multi- slice acquisition and multi-planar and/or 3D reconstructions. Computer aided detection (CAD) was utilized. CONTRAST MATERIAL: Intravenous: Omnipaque 350contrast volume:100 mL COMPARISON: No exams were available for comparison FINDINGS: There is artifact in the pelvis from the patient's bilateral total hip arthroplasties. CHEST: Tracheobronchial tree: Patent where visualized. No evidence of bronchiectasis. Pulmonary parenchyma: There are areas of consolidation seen in the lower lobes bilaterally. There are ground-glass opacities in the lungs predominantly involving the lower lobes. Pulmonary Arteries: There are filling defects seen in branches of the pulmonary arteries to the lower lobes bilaterally consistent with pulmonary emboli. There is no saddle embolus. Mediastinum and Angie: No dominant adenopathy or fluid collection. The esophagus is unremarkable. There is a small hiatal hernia. Visualized thyroid gland: Unremarkable. Pleura: There is a small right pleural effusion. No significant left pleural effusion. No pneumothorax is present. Heart: The heart is enlarged. The RV to LV ratio is less than 1. Coronary artery calcifications are present. No pericardial effusion. Aorta: The ascending thoracic aorta measures 4.1 x 4.3 cm. Atherosclerotic calcification is present. No evidence of dissection. Bones: Within normal limits for the patient's age. There are degenerative changes seen in the shoulders bilaterally. Soft tissues: Incidental note is made of a 4.1 x 5.5 cm lipoma posterior to the left scapula. ABDOMEN: Liver: Normal density. No measurable mass. Portal, Superior Mesenteric, and Splenic Veins: Unremarkable. Gallbladder and Biliary Tract: No radiodense calculus or dilation. Pancreas: Normal density, no abnormal calcifications or inflammatory process. Spleen: Normal. Adrenals: No masses seen. Kidneys: There is a wedge-shaped area of decreased enhancement in the mid left kidney. There is mild stranding in the perinephric fat on the left. No radiodense stones or obstructive uropathy. No masses seen. Abdominal Aorta: Abdominal portion non-dilated. Atherosclerotic calcification is present. Bowel: There is diverticulosis in the colon without evidence of acute diverticulitis. There is no evidence of bowel wall thickening or bowel obstruction. There is no evidence of appendicitis. There is a small hiatal hernia. Peritoneal Cavity: No ascites, collection or mesenteric inflammatory response. No free air. Lymph Nodes: Within normal limits. Bones: Within normal limits for the patient's age. There is marked central spinal canal stenosis at L4-L5. Patient has bilateral total hip arthroplasties Soft Tissues: There is a small fat containing umbilical hernia. There is a small fat containing right inguinal hernia. PELVIS: Bladder: Symmetric distention, no gross wall thickening. Reproductive Organs: Unremarkable as visualized. Lymph Nodes: Within normal limits. Bones: Within normal limits. IMPRESSION: 1. Which she area of decreased attenuation in the left kidney. Differential considerations include renal infarcts versus pyelonephritis. Neoplasm cannot be definitely excluded. 2. Colonic diverticulosis without evidence of acute diverticulitis. 3. Marked central spinal canal stenosis at L4-L5 secondary to the degenerative changes. 4. Bilateral lower lobe pulmonary emboli. The RV to LV ratio is less than 1. 5. Bilateral pulmonary infiltrates. Differential considerations include atelectasis, pneumonia, pulmonary edema or possible pulmonary infarct. 6. The preliminary [facility] report was reviewed. RADIATION DOSE DELIVERED: 673.83mGy.cm Total DLP DATA REPOSITORY: All CT scans at this facility are submitted to the National Radiology Data Registry (NRDR) Dose Index Registry (DIR) with the [employer] (ACR). RADIATION OPTIMIZATION: All CT scans at this facility use at least one of these dose optimization techniques: automated exposure control; mA and/or kV adjustment per patient size (includes targeted exams where dose is matched to clinical indication); or iterative reconstruction.
[2025-03-19 05:21] LABS: BE (Venous) 0 mmol/L (-2-3); HCO3 (Venous) 24 mmol/L (23-28); O2 Sat (Venous) 95 %; TCO2 (Venous) 22 mmol/L (24-29); pCO2 (Venous) 36 mmHg (41-51); pO2 (Venous) 68 mmHg
[2025-03-19 05:22] LABS: Abs Immature Grans 0.05 10^3/uL (0.0-0.06); HCT 37.7 % (40.0-50.0); HGB 12.7 g/dL (13.5-17.5); Immature Grans % 0.4 %; MCH 29.9 pg (27.0-33.0); MCHC 33.7 % (32.0-36.0); MCV 89 fL (80-95); MPV 8.7 fL (8.0-11.0); Platelet Count 322 10^3/uL (130-400); RBC 4.25 10^6/uL (4.36-5.78); RDW 12.6 % (11.8-14.1); RDW-SD 40.7 fL; WBC 12.76 10^3/uL (4.4-10.8)
[2025-03-19 05:42] LABS: ALT 42 U/L (16-63); AST 29 U/L (15-37); Albumin 3.4 g/dL (3.4-5.0); Alkaline Phosphatase 46 U/L (46-116); Anion Gap 8.5 mmol/L (3-11); BUN 20 mg/dL (7-18); Bilirubin, Total 0.6 mg/dL (0.2-1.0); CO2 26.5 mmol/L (21.0-32.0); Calcium 8.7 mg/dL (8.5-10.1); Chloride 101 mmol/L (98-107); Estimated GFR 90.18 (mL/min/1.73m2); Glucose 141 mg/dL (74-106); Lipase 44 U/L (<78); Magnesium 2.1 mg/dL (1.8-2.4); Potassium 4.2 mmol/L (3.5-5.1); Sodium 136 mmol/L (136-145); Total Protein 7.4 g/dL (6.4-8.2)
[2025-03-19 05:46] LABS: Troponin I 715 ng/L (<or=76)
[2025-03-19] MEDS: ACETAMINOPHEN 1,000 MG/100 ML BAG 400 MG IVPB (05:49)
[2025-03-19] MEDS: Normal Saline 500 ML IV (05:49)
[2025-03-19] MEDS: Omnipaque 350 MG/ML 100 ML BTL IJ (05:53)
[2025-03-19] MEDS: Normal Saline Flush 10 ML SYR IVP ×2 (05:54→13:36)
[2025-03-19] MEDS: Normal Saline - Diluent 50 ML VIAL IJ (05:54)
--- NOTE | 2025-03-19 06:33 | DI.[facility]_ITS ---
Addendum created by Yue Tucker MD on 03/19/2025 6:36:56 AM EDT: Correction: Please disregard the above reports. Reports should read as follows: CTA chest: Subsegmental pulmonary emboli in the lower lobes bilaterally. Multifocal ground-glass opacities in both lungs. Trace bilateral pleural effusions. No evidence for right heart strain. Coronary artery calcifications. Nonspecific mediastinal lymph nodes. Multiple rib deformities appear nonacute. Correlate clinically. Left chest wall lipoma incidentally noted. IMPRESSION: 1. Bilateral lower lobe subsegmental pulmonary emboli. 2. Multifocal ground-glass opacities in the lungs, may reflect underinflation, edema, or infection. Follow-up as clinically warranted. 3. Additional findings as above. 4. Additional studies dictated separately. 5. THIS REPORT CONTAINS FINDINGS THAT MAY BE CRITICAL TO PATIENT CARE. The findings were verbally communicated via telephone conference with NIKKY RAMÍREZ at 6:27 AM EDT on 03/19/2025. The findings were acknowledged and understood. CT abdomen/pelvis: Nonspecific mesenteric and retroperitoneal lymph nodes. Hiatal hernia. Hepatomegaly. Mild splenomegaly. Multiple areas of decreased enhancement in the left kidney with left perinephric stranding. No intestinal obstruction is evident. Fluid in nondilated small bowel, nonspecific. Retained fecal material is present in the colon. Colonic diverticula. Bilateral hip prostheses. Artifact limits evaluation of the surrounding tissues. Endplate deformities in the spine appear nonacute. Tiny fat containing umbilical hernia. Atherosclerotic changes in the aorta and its branches. No acute findings in the bladder, within the limitations noted above. CT scan of the chest dictated separately. IMPRESSION: 1. Multiple areas of decreased enhancement in the left kidney most suggestive of infarcts. Pyelonephritis is a differential consideration. Neoplasm cannot be definitively excluded. Clinical correlation and follow-up advised. 2. Additional findings as above. 3. Additional studies dictated separately. 4. THIS REPORT CONTAINS FINDINGS THAT MAY BE CRITICAL TO PATIENT CARE. The findings were verbally communicated via telephone conference with NIKKY RAMÍREZ at 6:27 AM EDT on 03/19/2025. The findings were acknowledged and understood. Initial report created on 03/19/2025 6:32:13 AM EDT: PROCEDURE INFORMATION: Exam: CTA Chest With Contrast Exam date and time: 03/19/2025 5:51 AM Age: 74 years old Clinical indication: Abdominal pain; Localized; Right-sided; Prior surgery; Surgery date: 6+ months; Surgery type: Appendectomy, bi lat hip replacements TECHNIQUE: Imaging protocol: Computed tomographic angiography of the chest with contrast. Exam focused on the arteries. Radiation optimization: All CT scans at this facility use at least one of these dose optimization techniques: automated exposure control; mA and/or kV adjustment per patient size (includes targeted exams where dose is matched to clinical indication); or iterative reconstruction. Contrast material: OMNIPAQUE 350; Contrast volume: 100 ml; Contrast route: INTRAVENOUS (IV); COMPARISON: No relevant prior studies are available for comparison. FINDINGS: Limitations: Artifact from bilateral hip prostheses limits evaluation of the surrounding tissues. Mild motion artifact. Pulmonary arteries: No pulmonary embolus appreciated. Aorta: No thoracic aortic aneurysm seen. Lungs: No focal consolidation seen. Pleural spaces: No pleural effusion. Heart: No pericardial effusion. Lymph nodes: Nonspecific mesenteric and retroperitoneal lymph nodes. Diaphragm: Tiny hiatal hernia. Liver: Hepatomegaly. Spleen: Mild splenomegaly. Kidneys: Multiple areas of decreased enhancement in the left kidney with left perinephric stranding. Intestine: No intestinal obstruction is evident. Fluid in nondilated small bowel, nonspecific. Retained fecal material is present in the colon. Colonic diverticula. Bones/joints: Bilateral hip prostheses. Artifact limits evaluation of the surrounding tissues. Endplate deformities in the spine appear nonacute. Soft tissues: Tiny fat containing umbilical hernia. Other findings: CT scan chest dictated separately. Vasculature: Atherosclerotic changes in aorta and its branches. Urinary bladder: No acute findings, within the limitations noted above. IMPRESSION: 1. Multiple areas of decreased enhancement in the left kidney most suggestive of infarcts. Pyelonephritis is a differential consideration. Neoplasm cannot be definitively excluded. Clinical correlation and follow-up advised. 2. Additional findings as above. 3. Additional studies dictated separately. 4. THIS REPORT CONTAINS FINDINGS THAT MAY BE CRITICAL TO PATIENT CARE. The findings were verbally communicated via telephone conference with NIKKY RAMÍREZ at 6:27 AM EDT on 03/19/2025. The findings were acknowledged and understood. PROCEDURE INFORMATION: Exam: CT Abdomen And Pelvis With Contrast Exam date and time: 03/19/2025 5:51 AM Age: 74 years old Clinical indication: Abdominal pain; Localized; Right-sided; Prior surgery; Surgery date: 6+ months; Surgery type: Appendectomy, bi lat hip replacements TECHNIQUE: Imaging protocol: Computed tomography of the abdomen and pelvis with contrast. Radiation optimization: All CT scans at this facility use at least one of these dose optimization techniques: automated exposure control; mA and/or kV adjustment per patient size (includes targeted exams where dose is matched to clinical indication); or iterative reconstruction. Contrast material: OMNIPAQUE 350; Contrast volume: 100 ml; Contrast route: INTRAVENOUS (IV); COMPARISON: No relevant prior studies available. FINDINGS: Limitations: Mild motion artifact. Lungs: Multifocal ground-glass opacities in both lungs. Pleural spaces: Trace bilateral pleural effusions. Heart: No evidence for right heart strain. Coronary arteries: Coronary artery calcifications. Liver: No focal hepatic lesion identified. Gallbladder and biliary ducts: No radiodense gallbladder calculi seen. Pancreas: No CT evidence for acute pancreatitis. Spleen: No splenomegaly. Adrenal glands: No mass. Kidneys and ureters: No hydronephrosis or evidence for pyelonephritis. Stomach and bowel: No intestinal obstruction is appreciated. Appendix: No evidence of appendicitis. Intraperitoneal space: CT scan of the abdomen and pelvis dictated separately. Vasculature: Subsegmental pulmonary emboli in the lower lobes bilaterally. Lymph nodes: Nonspecific mediastinal lymph nodes. Urinary bladder: No acute findings. Reproductive: No acute findings. Bones/joints: Multiple rib deformities appear nonacute. Correlate clinically. Soft tissues: Left chest wall lipoma incidentally noted. IMPRESSION: 1. Bilateral lower lobe subsegmental pulmonary emboli. 2. Multifocal ground-glass opacities in the lungs, may reflect underinflation, edema, or infection. Follow-up as clinically warranted. 3. Additional findings as above. 4. Additional studies dictated separately. 5. THIS REPORT CONTAINS FINDINGS THAT MAY BE CRITICAL TO PATIENT CARE. The findings were verbally communicated via telephone conference with NIKKY RAMÍREZ at 6:27 AM EDT on 03/19/2025. The findings were acknowledged and understood. Dictated and Authenticated by: Yue Tucker MD. Orderin Yogesh Marvin MD
[2025-03-19 06:40] LABS: COVID-19 PCR Negative (Negative); RSV PCR Negative (Negative)
[2025-03-19 06:44] LABS: Glucose Negative (Negative)
[2025-03-19 07:11] LABS: INR 1.0 (0.9-1.1); PTT Activated 27.6 sec (20.6-30.2); Prothrombin Time 10.4 sec (9.1-11.1)
[2025-03-19] MEDS: Heparin in 0.45% NaCl 25,000 UNIT/250 ML BAG 17.5 UNIT IVINF ×2 (07:11→18:31)
[2025-03-19 07:12] LABS: Troponin I 733 ng/L (<or=76)
--- NOTE | 2025-03-19 08:21 | ED.PROG_ITS ---
Date of service: 03/19/25 Time of Service: 08:21 Medical Decision Making I received signout on this 74-year-old male found to have multiple subsegmental PEs. His CAT scan also was concerning for the possibility of a renal infarct. [place] [facility] [place] He has myocardial injury based on his eleva sharon troponins. He is on a heparin drip and thus far has been hemodynamically stable. 9:45 AM I was in touch with Dr. Tapia who felt comfortable hospitalizing the patient locally. He advised a hypercoagulable workup which I initiated. Unfortunately patient's blood had to be redrawn as there is no longer tubes available. I ordered antiphospholipid, protein C protein S prothrombin and factor V Leiden levels. I also ordered an echocardiogram and renal ultrasound. Patient had had general malaise approximately 2 weeks ago prior to symptoms so I ordered a tickborne panel but will defer treatment as patient is not febrile at the moment and has no rash. I was in touch with Dr. Myrick who requested vascular consult in the event that there is an opportunity for repeat vascular. I reengaged with [facility] [place] consult. 10:10 AM I was in touch with [facility] [place]. The case had been relayed to Dr. Sher from vascular surgery. He requested that during the patient's hospitalization patient undergo at some point a CT angiogram of his chest abdomen and pelvis and that a referral be placed for urgent outpatient follow-up. There were no indications for tertiary care transfer. Will update Dr. Myrick and patient and family. 11 AM I was in touch with Dr. Myrick who graciously agreed to accept patient for hospitalization. Quality:SDOH Health Related Social Needs: Health related social needs details none Discharge Plan Disposition Patient Disposition: Admit to [facility] Discharge Details Clinical Impression: Myocardial injury, Pulmonary embolism, bilateral Admit Date/Time: 03/19/25 11:13 Admit Provider: Yon Myrick Attending Provider: Yon Myrick Primary Care Provider: Eddie Garza ED Provider: Miguel Benitez Discharge Data Discharge Date/Time-TO BE ENTERED AT DEPARTURE: 03/19/25 12:12 POCUS Exam (ED) Limited Cardiac Exam DATE OF EXAM: 03/19/25 TIME OF EXAM: 09:46 PROVIDER THAT PERFORMED THE STUDY: Miguel Benitez IS THIS A REPEAT EXAM DURING THIS ENCOUNTER: no REASON FOR EXAM: Right heart strain/PE VISUALIZED STRUCTURES: Four Chambers, Left ventricle and LVOT VIEW OBTAINED: Apical 4-Chamber, Parasternal long-axis and Subxiphoid PERTINENT FINDINGS/IMPRESSION: No pericardial effusion and No RV dilation DIFFERENTIAL DIAGNOSES: Aortic outflow track less than 4 cm, good squeeze, RV less than LV, no significant pericardial effusion. Exam complete
[2025-03-19 10:12] LABS: INR 1.1 (0.9-1.1); Prothrombin Time 10.9 sec (9.1-11.1)
[2025-03-19 11:07] LABS: Lab Add On Test DONE
[2025-03-19 12:54] LABS: Troponin I 536 ng/L (<or=76)
--- NOTE | 2025-03-19 13:20 | W.PC.ACHO ---
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) Status post appendectomy H/O bilateral hip replacements Most Recent Vital Signs Temperature 36.3 C L 03/19/25 12:08 Temperature Source Tympanic 03/19/25 04:49 Pulse 74 03/19/25 12:08 Pulse Rhythm Irregular 03/19/25 12:08 Pulse 66 03/19/25 11:50 Respiratory Rate 28 H 03/19/25 12:08 Respiratory Effort Normal, Non-Labored 03/19/25 12:08 Respiratory Depth Shallow 03/19/25 12:08 Respiratory Pattern Normal 03/19/25 12:08 Blood Pressure 148/60 H 03/19/25 12:08 Blood Pressure Mean 85 03/19/25 11:41 Blood Pressure Position Sitting 03/19/25 04:49 Pulse Oximetry 92 03/19/25 12:08 Oxygen Delivery Method Room Air 03/19/25 12:08 Oxygen Flow Rate 0 03/19/25 12:08 Pain Level 0 03/19/25 12:08 Comment pt unable to rate pain 03/19/25 04:49 Allergies losartan (Losartan) Adverse Reaction (Intermediate, Verified 03/19/25 04:56) FATIGUE Precautions Isolation Standard precaution 03/19/25 04:57 Active Medications Generic Name Dose Route Start Last Admin Trade Name Freq PRN Reason Stop Dose Admin Heparin Sodium/Sodium Chloride 25,000 unit in 250 mls @ 17.5 mls/hr 03/19/25 06:45 03/19/25 07:11 IVINF 1,750 units/hr INFUSION ANDRZEJ 17.5 mls/hr Protocol Administration 1,750 UNITS/HR Sodium Chloride 0 ml 03/19/25 05:32 03/19/25 05:54 Normal Saline Flush 10 Ml Syr IVP 10 ml PRN PRN Administration IV IV Catheter Type [Right Peripheral IV Forearm] IV Catheter Gauge [Right 20 Forearm] Diet Orders Category Date Time Status Regular/Normal [DIET] Nutrition 03/19/25 Lunch Active Diagnostics 03/19/25 03/19/25 03/19/25 Range/Units 14:17 13:15 12:23 WBC (4.4-10.8) 10^3/uL RBC (4.36-5.78) 10^6/uL Hgb (13.5-17.5) g/dL Hct (40.0-50.0) % MCV (80-95) fL MCH (27.0-33.0) pg MCHC (32.0-36.0) % RDW (11.8-14.1) % Plt Count (130-400) 10^3/uL MPV (8.0-11.0) fL Immature Gran % % Neutrophils % % Lymphocytes % % Monocytes % % Eosinophils % % Basophils % % Nucleated RBC % (0.0-0.3) % Absolute Neutrophils (1.2-6.7) 10^3/uL Absolute Lymphocytes (1.2-3.4) 10^3/uL Absolute Monocytes (0.1-0.8) 10^3/uL Absolute Eosinophils (0.0-0.7) 10^3/uL Absolute Basophils (0.0-0.2) 10^3/uL PT (9.1-11.1) sec INR (0.9-1.1) APTT Pending (20.6-30.2) sec Protein C Antigen Free Protein S Antigen Factor V Leiden Mutat Factor V Leiden Interp Factor V Leiden Rev By VBG pH (7.31-7.41) VBG pCO2 (41-51) mmHg VBG pO2 mmHg VBG HCO3 (23-28) mmol/L VBG Total CO2 (24-29) mmol/L VBG O2 Saturation % VBG Base Excess (-2-3) mmol/L VBG Lactate (<or=2.0) mmol/L Sodium (136-145) mmol/L Potassium (3.5-5.1) mmol/L Chloride (98-107) mmol/L Carbon Dioxide (21.0-32.0) mmol/L Anion Gap (3-11) mmol/L BUN (7-18) mg/dL Creatinine (0.70-1.30) mg/dL Est GFR (CKD-EPI 2020) (mL/min/1.73m2) Glucose (74-106) mg/dL Calcium (8.5-10.1) mg/dL Magnesium (1.8-2.4) mg/dL Total Bilirubin (0.2-1.0) mg/dL AST (15-37) U/L ALT (16-63) U/L Alkaline Phosphatase (46-116) U/L Troponin I Pending 536 H* (<or=76) ng/L Total Protein (6.4-8.2) g/dL Albumin (3.4-5.0) g/dL [id number] Lipase (<78) U/L Urine Color (Yellow) Urine Clarity (Clear) Urine pH (5-8) Ur Specific [place] (1.005-1.025) Urine Protein (Neg-Trace) mg/dL Urine Ketones (Negative) mg/dL Urine Blood (Negative) Urine Nitrite (Negative) Urine Bilirubin (Negative) Urine Urobilinogen (Up to 0.2) mg/dL Ur Leukocyte Esterase (Negative) Urine Glucose (Negative) mg/dL B. divergens/MO-1 PCR Babesia duncani (PCR) Babesia microti DNA PCR Lyme Disease Antibody COVID-19 Source SARS-CoV-2 (PCR) (Negative) E.chaffeensis DNA (PCR) E.ewingii/canis DNA PCR E.muris eauclairensis (PCR) Influenza Type A (PCR) (Negative) Influenza Type B (PCR) (Negative) RSV (PCR) (Negative) A. phagocytophilum (PCR) Blood B. miyamotoi (PCR) Add-On Test Request 03/19/25 03/19/25 03/19/25 Range/Units 10:00 09:55 09:01 WBC (4.4-10.8) 10^3/uL RBC (4.36-5.78) 10^6/uL Hgb (13.5-17.5) g/dL Hct (40.0-50.0) % MCV (80-95) fL MCH (27.0-33.0) pg MCHC (32.0-36.0) % RDW (11.8-14.1) % Plt Count (130-400) 10^3/uL MPV (8.0-11.0) fL Immature Gran % % Neutrophils % % Lymphocytes % % Monocytes % % Eosinophils % % Basophils % % Nucleated RBC % (0.0-0.3) % Absolute Neutrophils (1.2-6.7) 10^3/uL Absolute Lymphocytes (1.2-3.4) 10^3/uL Absolute Monocytes (0.1-0.8) 10^3/uL Absolute Eosinophils (0.0-0.7) 10^3/uL Absolute Basophils (0.0-0.2) 10^3/uL PT 10.9 (9.1-11.1) sec INR 1.1 (0.9-1.1) APTT (20.6-30.2) sec Protein C Antigen Pending Free Protein S Antigen Pending Factor V Leiden Mutat Pending Factor V Leiden Interp Pending Factor V Leiden Rev By Pending VBG pH (7.31-7.41) VBG pCO2 (41-51) mmHg VBG pO2 mmHg VBG HCO3 (23-28) mmol/L VBG Total CO2 (24-29) mmol/L VBG O2 Saturation % VBG Base Excess (-2-3) mmol/L VBG Lactate (<or=2.0) mmol/L Sodium (136-145) mmol/L Potassium (3.5-5.1) mmol/L Chloride (98-107) mmol/L Carbon Dioxide (21.0-32.0) mmol/L Anion Gap (3-11) mmol/L BUN (7-18) mg/dL Creatinine (0.70-1.30) mg/dL Est GFR (CKD-EPI 2020) (mL/min/1.73m2) Glucose (74-106) mg/dL Calcium (8.5-10.1) mg/dL Magnesium (1.8-2.4) mg/dL Total Bilirubin (0.2-1.0) mg/dL AST (15-37) U/L ALT (16-63) U/L Alkaline Phosphatase (46-116) U/L Troponin I (<or=76) ng/L Total Protein (6.4-8.2) g/dL Albumin (3.4-5.0) g/dL [id number] Pending Lipase (<78) U/L Urine Color (Yellow) Urine Clarity (Clear) Urine pH (5-8) Ur Specific [place] (1.005-1.025) Urine Protein (Neg-Trace) mg/dL Urine Ketones (Negative) mg/dL Urine Blood (Negative) Urine Nitrite (Negative) Urine Bilirubin (Negative) Urine Urobilinogen (Up to 0.2) mg/dL Ur Leukocyte Esterase (Negative) Urine Glucose (Negative) mg/dL B. divergens/MO-1 PCR Pending Babesia duncani (PCR) Pending Babesia microti DNA PCR Pending Lyme Disease Antibody Pending COVID-19 Source SARS-CoV-2 (PCR) (Negative) E.chaffeensis DNA (PCR) Pending E.ewingii/canis DNA PCR Pending E.muris eauclairensis (PCR) Pending Influenza Type A (PCR) (Negative) Influenza Type B (PCR) (Negative) RSV (PCR) (Negative) A. phagocytophilum (PCR) Pending Blood B. miyamotoi (PCR) Pending Add-On Test Request DONE 03/19/25 03/19/25 03/19/25 Range/Units 06:33 06:30 06:00 WBC (4.4-10.8) 10^3/uL RBC (4.36-5.78) 10^6/uL Hgb (13.5-17.5) g/dL Hct (40.0-50.0) % MCV (80-95) fL MCH (27.0-33.0) pg MCHC (32.0-36.0) % RDW (11.8-14.1) % Plt Count (130-400) 10^3/uL MPV (8.0-11.0) fL Immature Gran % % Neutrophils % % Lymphocytes % % Monocytes % % Eosinophils % % Basophils % % Nucleated RBC % (0.0-0.3) % Absolute Neutrophils (1.2-6.7) 10^3/uL Absolute Lymphocytes (1.2-3.4) 10^3/uL Absolute Monocytes (0.1-0.8) 10^3/uL Absolute Eosinophils (0.0-0.7) 10^3/uL Absolute Basophils (0.0-0.2) 10^3/uL PT (9.1-11.1) sec INR (0.9-1.1) APTT (20.6-30.2) sec Protein C Antigen Free Protein S Antigen Factor V Leiden Mutat Factor V Leiden Interp Factor V Leiden Rev By VBG pH (7.31-7.41) VBG pCO2 (41-51) mmHg VBG pO2 mmHg VBG HCO3 (23-28) mmol/L VBG Total CO2 (24-29) mmol/L VBG O2 Saturation % VBG Base Excess (-2-3) mmol/L VBG Lactate (<or=2.0) mmol/L Sodium (136-145) mmol/L Potassium (3.5-5.1) mmol/L Chloride (98-107) mmol/L Carbon Dioxide (21.0-32.0) mmol/L Anion Gap (3-11) mmol/L BUN (7-18) mg/dL Creatinine (0.70-1.30) mg/dL Est GFR (CKD-EPI 2020) (mL/min/1.73m2) Glucose (74-106) mg/dL Calcium (8.5-10.1) mg/dL Magnesium (1.8-2.4) mg/dL Total Bilirubin (0.2-1.0) mg/dL AST (15-37) U/L ALT (16-63) U/L Alkaline Phosphatase (46-116) U/L Troponin I 733 H* (<or=76) ng/L Total Protein (6.4-8.2) g/dL Albumin (3.4-5.0) g/dL [id number] Lipase (<78) U/L Urine Color Cancelled Yellow (Yellow) Urine Clarity Cancelled Clear (Clear) Urine pH Cancelled 6.5 (5-8) Ur Specific [place] Cancelled 1.015 (1.005-1.025) Urine Protein Cancelled Negative (Neg-Trace) mg/dL Urine Ketones Cancelled Negative (Negative) mg/dL Urine Blood Cancelled Negative (Negative) Urine Nitrite Cancelled Negative (Negative) Urine Bilirubin Cancelled Negative (Negative) Urine Urobilinogen Cancelled 0.2 (Up to 0.2) mg/dL Ur Leukocyte Esterase Cancelled Negative (Negative) Urine Glucose Cancelled Negative (Negative) mg/dL B. divergens/MO-1 PCR Babesia duncani (PCR) Babesia microti DNA PCR Lyme Disease Antibody COVID-19 Source Nasopharynx SARS-CoV-2 (PCR) Negative (Negative) E.chaffeensis DNA (PCR) E.ewingii/canis DNA PCR E.muris eauclairensis (PCR) Influenza Type A (PCR) Negative (Negative) Influenza Type B (PCR) Negative (Negative) RSV (PCR) Negative (Negative) A. phagocytophilum (PCR) Blood B. miyamotoi (PCR) Add-On Test Request 03/19/25 Range/Units 05:15 WBC 12.76 H (4.4-10.8) 10^3/uL RBC 4.25 L (4.36-5.78) 10^6/uL Hgb 12.7 L (13.5-17.5) g/dL Hct 37.7 L (40.0-50.0) % MCV 89 (80-95) fL MCH 29.9 (27.0-33.0) pg MCHC 33.7 (32.0-36.0) % RDW 12.6 (11.8-14.1) % Plt Count 322 (130-400) 10^3/uL MPV 8.7 (8.0-11.0) fL Immature Gran % 0.4 % Neutrophils % 77.3 % Lymphocytes % 10.2 % Monocytes % 11.3 % Eosinophils % 0.5 % Basophils % 0.3 % Nucleated RBC % 0.0 (0.0-0.3) % Absolute Neutrophils 9.86 H (1.2-6.7) 10^3/uL Absolute Lymphocytes 1.30 (1.2-3.4) 10^3/uL Absolute Monocytes 1.44 H (0.1-0.8) 10^3/uL Absolute Eosinophils 0.06 (0.0-0.7) 10^3/uL Absolute Basophils 0.04 (0.0-0.2) 10^3/uL PT 10.4 (9.1-11.1) sec INR 1.0 (0.9-1.1) APTT 27.6 (20.6-30.2) sec Protein C Antigen Free Protein S Antigen Factor V Leiden Mutat Factor V Leiden Interp Factor V Leiden Rev By VBG pH 7.44 H (7.31-7.41) VBG pCO2 36 L (41-51) mmHg VBG pO2 68 mmHg VBG HCO3 24 (23-28) mmol/L VBG Total CO2 22 L (24-29) mmol/L VBG O2 Saturation 95 % VBG Base Excess 0 (-2-3) mmol/L VBG Lactate 1.0 (<or=2.0) mmol/L Sodium 136 (136-145) mmol/L Potassium 4.2 (3.5-5.1) mmol/L Chloride 101 (98-107) mmol/L Carbon Dioxide 26.5 (21.0-32.0) mmol/L Anion Gap 8.5 (3-11) mmol/L BUN 20 H (7-18) mg/dL Creatinine 0.9 (0.70-1.30) mg/dL Est GFR (CKD-EPI 2020) 90.18 (mL/min/1.73m2) Glucose 141 H (74-106) mg/dL Calcium 8.7 (8.5-10.1) mg/dL Magnesium 2.1 (1.8-2.4) mg/dL Total Bilirubin 0.6 (0.2-1.0) mg/dL AST 29 (15-37) U/L ALT 42 (16-63) U/L Alkaline Phosphatase 46 (46-116) U/L Troponin I 715 H* (<or=76) ng/L Total Protein 7.4 (6.4-8.2) g/dL Albumin 3.4 (3.4-5.0) g/dL Zkorm-0-Eacxildltsy Lipase 44 (<78) U/L Urine Color (Yellow) Urine Clarity (Clear) Urine pH (5-8) Ur Specific [place] (1.005-1.025) Urine Protein (Neg-Trace) mg/dL Urine Ketones (Negative) mg/dL Urine Blood (Negative) Urine Nitrite (Negative) Urine Bilirubin (Negative) Urine Urobilinogen (Up to 0.2) mg/dL Ur Leukocyte Esterase (Negative) Urine Glucose (Negative) mg/dL B. divergens/MO-1 PCR Babesia duncani (PCR) Babesia microti DNA PCR Lyme Disease Antibody COVID-19 Source SARS-CoV-2 (PCR) (Negative) E.chaffeensis DNA (PCR) E.ewingii/canis DNA PCR E.muris eauclairensis (PCR) Influenza Type A (PCR) (Negative) Influenza Type B (PCR) (Negative) RSV (PCR) (Negative) A. phagocytophilum (PCR) Blood B. miyamotoi (PCR) Add-On Test Request Intake and Output - 24 Hour Total 03/19/25 04:46 thru 03/19/25 12:08 Intake Total 600 Balance 600 Weight 95.4 kg Intake: IV 600 Other: Urine Appearance Clear Falls Risk Assessment History of Falls Previous History 03/19/25 12:08 Contributing Factors No Factors 03/19/25 12:08 Ambulatory Aids Independent 03/19/25 12:08 Tubes/Lines None 03/19/25 12:08 Gait Evaluation No gait disturbance 03/19/25 12:08 Cognition No cognitive impairment 03/19/25 12:08 Fall Total Score 15 03/19/25 12:08 Level of Risk Standard/Low Risk 03/19/25 12:08 v v v v v v v v v Sending and/or Receiving Nurses: Please use comment section below to note any information pertinent to the patient hand-off not included above. Information / Comments: Paged at [phone], report called at [phone] and was told they would call back, ED called back at [phone]. Pt has 20 G R wrist difusics. Currently on Heparin drip running at 17.5 mLs/hr, next PTT due at 1315 (this fiction and nonfiction writer prose has placed order). Report received from: Eloisa Balderas ED, RN
[2025-03-19] MEDS: MORPHine 2 MG/ML SYR IVP ×2 (13:35→18:44)
[2025-03-19] MEDS: Normal Saline 1,000 ML 125 ML IV (13:36)
[2025-03-19 13:53] LABS: PTT Activated 69.5 sec (20.6-30.2)
--- NOTE | 2025-03-19 14:51 | HPE_ITS ---
Date of service: 03/19/25 Time of Service: 14:51 Assessment and Plan Assessment and plan (1) Essential hypertension: Status: Acute Assessment and plan: pt has refused rx in the past (2) Pulmonary embolism, bilateral: Status: Acute Assessment and plan: Pt is on heparin drip. Plan on keeping it on overnight and change to oral anticoagulant in the am. Troponins elevated but improving (3) Renal infarct: Status: Acute Assessment and plan: Per ED, case was discussed with vascular at [facility] who did not recommend further intervention and a ct angio at some point. Will cw ivf and consider ct angio in 24-48 hours. Pt did get a dye load during last CT rule out PE (4) Elevated troponin: Status: Acute Assessment and plan: trending down, repeat labs pending (5) Lumbar stenosis: Status: Acute Assessment and plan: asymptomatic, outpatient follow up at discretion of PCP History of Present Illness History of Present Illness Chief Complaint: pleuritic chest pain Narrative: This is a 74-year-old gentleman who presents to the ED today with pleuritic chest pain. Patient states that he has been feeling somewhat ill over the last 10 days and thought he had COVID. He did do a COVID test in the outpatient setting but results were negative. He does have concerned that he did not perform the test correctly at home. Doing to his illness the patient has not been able to get out of bed very easily or regularly. Yesterday he stated he felt much better but this morning developed pleuritic chest pain and came into the ED for further evaluation and treatment. While he was in the ED he was noted to have a pulmonary embolism which was found on CT angiogram. Further workup indicated a left sided renal renal infarction. In reviewing the other results from the CT he does have a mild elevation in his aortic thoracic aortic diameter. Patient was also noted to have severe spinal canal stenosis at L4-5. I did asked the ED to call down to [facility] for further clarifications and Dr. Benitez did discuss the case with vascular surgery who did not recommend transfer but did recommend a CT angiogram sooner rather than later. Patient was subsequently mated to the hospital service for further treatment. Patient's Pesi score is 113 putting him at a higher risk class IV. Of note, this is based on a potential malignancy that has not been proven. Other diagnostic data white count of 12.76. Hemoglobin hematocrit 12.7/37.7. INR is 1.1 hypercoagulable panel was pending. pH was 7.44 with PCO2 of 36 PO268. BUN/creatinine is 20/0.9. Troponins done on admission showed a value of 715 had a high of 733 and is currently 536 with another 1 pending at this afternoon. EKG shows a heart rate of 79 prolonged ID interval. Normal axis. No ST elevation or depression. Review of Systems Narrative: No recent travel. Has been somewhat more tired than normal in bed. No history of blood clots. Does not smoke. 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 Father , age 87 No problems noted. Sister No problems noted. Sister Alcohol abuse Substance abuse Sister No problems noted. Son No problems noted. Maternal Grandmother , age 96 No problems noted. Maternal Grandfather , age 50 Tuberculosis Paternal Grandmother , age 75 No problems noted. Paternal Grandfather , age 67 No problems noted. Social History Smoking/Tobacco Use Status: Former Tobacco Use Quit Date: 07/19/89 Second Hand Exposure: Yes Smoking risk assessment performed?: Yes Alcohol Intake: former Year quit: 2023 Drug use: Daily Substance use type: marijuana Counseling given: No Adopted: No Caregiver/Support person: No Household members: spouse Housing: house Number of Children: 3 number of grandchildren: 7 Communication Needs: None Education Level: college Details: two years Do you need help understanding health information?: Rarely current occupation: Retired<3 Pets and animals: Yes Pets and animals: cat(s) and dog(s) Sexually active: Yes Do you think of yourself as: straight/heterosexual Current gender identity: male What is your relationship status?: How often do you talk on the phone with friends or family?: twice per week How often do you get together with friends or relatives?: twice per week How often do you attend anglican or orthodoxy services?: 1-3 times per year Do you belong to any clubs or organized social groups?: no Panel score (0-1 are the most socially isolated patients): 2 What type of physical activity do you participate in: bicycling and other Details: skiing Duration: 60-90 minutes/day Frequency: 3-4 times per week Morena/Restoration: [place] [employer] Special morena needs: No Agree to transfusion: Yes Seatbelt use: always Helmet use: Yes Helmet use: always Drive intox or ride w/intox class b driver: No Working smoke detector in home: Yes Carbon monox detector in home: Yes Firearms in home: Yes Firearms unloaded and locked: Yes Do you feel safe at home: Yes Do you feel safe in your relationship?: Yes Victim of physical abuse: No Victim of emotional abuse: No Victim of sexual abuse: No Would you like helpful sources: No Meds Allergies and Home Medications Allergies Allergy/AdvReac Type Severity Reaction Status Date / Time losartan (Losartan) AdvReac Intermediate FATIGUE Verified 03/19/25 04:56 Home Medications ?Medication ?Instructions ?Recorded ?Confirmed ?Type celecoxib 200 mg capsule (Celebrex) 200 mg PO BID PRN pain #60 caps 07/26/24 10/25/24 Rx Exam Narrative Exam Narrative: heent-ncat mmm eomi perrla neck-no lad no jvd cv-rrr no mrg lungs-ctab no amu abd-sntndbsa ext-no cce bilat [id number] intact as tested non-focal [id number] Results Labs 03/19/25 05:15 03/19/25 05:15 Labs: Laboratory Results - last 24 hr 03/19/25 03/19/25 03/19/25 05:15 06:00 06:30 WBC 12.76 H RBC 4.25 L Hgb 12.7 L Hct 37.7 L MCV 89 MCH 29.9 MCHC 33.7 RDW 12.6 Plt Count 322 MPV 8.7 Immature Gran % 0.4 Neutrophils % 77.3 Lymphocytes % 10.2 Monocytes % 11.3 Eosinophils % 0.5 Basophils % 0.3 Nucleated RBC % 0.0 Absolute Neutrophils 9.86 H Absolute Lymphocytes 1.30 Absolute Monocytes 1.44 H Absolute Eosinophils 0.06 Absolute Basophils 0.04 PT 10.4 INR 1.0 APTT 27.6 VBG pH 7.44 H VBG pCO2 36 L VBG pO2 68 VBG HCO3 24 VBG Total CO2 22 L VBG O2 Saturation 95 VBG Base Excess 0 VBG Lactate 1.0 Sodium 136 Potassium 4.2 Chloride 101 Carbon Dioxide 26.5 Anion Gap 8.5 BUN 20 H Creatinine 0.9 Est GFR (CKD-EPI 2020) 90.18 Glucose 141 H Calcium 8.7 Magnesium 2.1 Total Bilirubin 0.6 AST 29 ALT 42 Alkaline Phosphatase 46 Troponin I 715 H* 733 H* Total Protein 7.4 Albumin 3.4 Lipase 44 Urine Color Yellow Urine Clarity Clear Urine pH 6.5 Ur Specific [place] 1.015 Urine Protein Negative Urine Ketones Negative Urine Blood Negative Urine Nitrite Negative Urine Bilirubin Negative Urine Urobilinogen 0.2 Ur Leukocyte Esterase Negative Urine Glucose Negative COVID-19 Source Nasopharynx SARS-CoV-2 (PCR) Negative Influenza Type A (PCR) Negative Influenza Type B (PCR) Negative RSV (PCR) Negative Add-On Test Request 03/19/25 03/19/25 03/19/25 06:33 09:01 10:00 WBC RBC Hgb Hct MCV MCH MCHC RDW Plt Count MPV Immature Gran % Neutrophils % Lymphocytes % Monocytes % Eosinophils % Basophils % Nucleated RBC % Absolute Neutrophils Absolute Lymphocytes Absolute Monocytes Absolute Eosinophils Absolute Basophils PT 10.9 INR 1.1 APTT VBG pH VBG pCO2 VBG pO2 VBG HCO3 VBG Total CO2 VBG O2 Saturation VBG Base Excess VBG Lactate Sodium Potassium Chloride Carbon Dioxide Anion Gap BUN Creatinine Est GFR (CKD-EPI 2020) Glucose Calcium Magnesium Total Bilirubin AST ALT Alkaline Phosphatase Troponin I Total Protein Albumin Lipase Urine Color Cancelled Urine Clarity Cancelled Urine pH Cancelled Ur Specific [place] Cancelled Urine Protein Cancelled Urine Ketones Cancelled Urine Blood Cancelled Urine Nitrite Cancelled Urine Bilirubin Cancelled Urine Urobilinogen Cancelled Ur Leukocyte Esterase Cancelled Urine Glucose Cancelled COVID-19 Source SARS-CoV-2 (PCR) Influenza Type A (PCR) Influenza Type B (PCR) RSV (PCR) Add-On Test Request DONE 03/19/25 03/19/25 12:23 13:15 WBC RBC Hgb Hct MCV MCH MCHC RDW Plt Count MPV Immature Gran % Neutrophils % Lymphocytes % Monocytes % Eosinophils % Basophils % Nucleated RBC % Absolute Neutrophils Absolute Lymphocytes Absolute Monocytes Absolute Eosinophils Absolute Basophils PT INR APTT 69.5 H VBG pH VBG pCO2 VBG pO2 VBG HCO3 VBG Total CO2 VBG O2 Saturation VBG Base Excess VBG Lactate Sodium Potassium Chloride Carbon Dioxide Anion Gap BUN Creatinine Est GFR (CKD-EPI 2020) Glucose Calcium Magnesium Total Bilirubin AST ALT Alkaline Phosphatase Troponin I 536 H* Total Protein Albumin Lipase Urine Color Urine Clarity Urine pH Ur Specific [place] Urine Protein Urine Ketones Urine Blood Urine Nitrite Urine Bilirubin Urine Urobilinogen Ur Leukocyte Esterase Urine Glucose COVID-19 Source SARS-CoV-2 (PCR) Influenza Type A (PCR) Influenza Type B (PCR) RSV (PCR) Add-On Test Request Last Vital Signs Temp 36.3 C L 03/19/25 12:08 Pulse 74 03/19/25 12:08 Resp 28 H 03/19/25 12:08 BP 148/60 H 03/19/25 12:08 Pulse Ox 92 03/19/25 12:08 Time Spent Time spent with Patient: 55-74 minutes Time was spent: preparing to see the patient(eg.review tests), obtaining and/or reviewing separately otained hiistory, ordering medications,tests, procedures, referring, communicating with other health child care development specialist, indepentently interpreting results, counseling the patient and care coordination
[2025-03-19 15:56] LABS: Troponin I 464 ng/L (<or=76)
[2025-03-19 21:23] LABS: PTT Activated 44.6 sec (20.6-30.2)
--- NOTE | 2025-03-20 00:01 | DI.US_ITS ---
Exam(s) US RENAL EXAM: US RENAL CLINICAL HISTORY: Question renal infarct left. TECHNIQUE: Villanueva scale imaging and color doppler were used. COMPARISON: CT CT CHEST PE ABD PELVIS W from 03/19/2025 FINDINGS: Right kidney: 12.0cm Echogenicity: Normal Hydronephrosis: No Cyst or mass: No Nephrolithiasis: No Left kidney: 11.8 cm. Normal parenchymal thickness. No perinephric collection. Echogenicity: Normal Hydronephrosis: No Cyst or mass: No Nephrolithiasis: No Bladder:Normal. Both ureteral jets were visualized. Prevoid vol:157 cc Postvoid vol: 106 cc Prostate volume 30 cc IMPRESSION: No abnormality of the left kidney is identified by ultrasound as was noted on recent CT. Elevated postvoid residual. DATA REPOSITORY:
[2025-03-20] MEDS: MORPHine 2 MG/ML SYR IVP ×2 (02:10→08:03)
[2025-03-20 04:05] VITALS: BP 161/71; PULSE 70; RESP 18; TEMP 37.4; O2SAT 93
[2025-03-20 04:19] LABS: Abs Immature Grans 0.03 10^3/uL (0.0-0.06); HCT 35.5 % (40.0-50.0); HGB 12.0 g/dL (13.5-17.5); Immature Grans % 0.3 %; MCH 30.2 pg (27.0-33.0); MCHC 33.8 % (32.0-36.0); MCV 89 fL (80-95); MPV 8.9 fL (8.0-11.0); Platelet Count 294 10^3/uL (130-400); RBC 3.97 10^6/uL (4.36-5.78); RDW 12.6 % (11.8-14.1); RDW-SD 41.5 fL; WBC 10.54 10^3/uL (4.4-10.8)
[2025-03-20 04:48] LABS: ALT 30 U/L (16-63); AST 17 U/L (15-37); Albumin 2.7 g/dL (3.4-5.0); Alkaline Phosphatase 40 U/L (46-116); Anion Gap 8.8 mmol/L (3-11); BUN 11 mg/dL (7-18); Bilirubin, Total 0.6 mg/dL (0.2-1.0); CO2 26.2 mmol/L (21.0-32.0); Calcium 8.2 mg/dL (8.5-10.1); Chloride 103 mmol/L (98-107); Estimated GFR 101.93 (mL/min/1.73m2); Glucose 130 mg/dL (74-106); Potassium 4.1 mmol/L (3.5-5.1); Sodium 138 mmol/L (136-145); Total Protein 6.6 g/dL (6.4-8.2)
[2025-03-20 04:49] LABS: Troponin I 397 ng/L (<or=76)
[2025-03-20 04:56] LABS: PTT Activated 99.6 sec (20.6-30.2)
[2025-03-20] MEDS: Heparin in 0.45% NaCl 25,000 UNIT/250 ML BAG 17.5 UNIT IVINF (05:35)
[2025-03-20] MEDS: Normal Saline 1,000 ML 125 ML IV (07:06)
--- NOTE | 2025-03-20 07:57 | W.PULMCON ---
General Date Of Service Date of service: 03/20/25 Time of Service: 07:30 Requesting physician: Miguel Benitez Reason for Consult: Pulmonary embolism Recommendations: Assessment: 1. Acute pulmonary embolism 2. Pulmonary infiltrates 3. Renal lesion - ? infarct 4. Hx tobacco use - quit ~30 years ago Plan: - ok to transition to Xa inhibitor (eliquis or xarelto). Plan for a minimum of 3 months of anticoagulation. Will see in clinic to re-evaluate before his course is completed - will follow up on the hypercoagulable workup - agree with echo, given possible renal infarct, need to consider right to left shunt - will plan to repeat imaging in 2-3 months to re-evaluate the pulmonary infiltrates - provided that no concerning findings are seen on echo, OK for discharge from a pulmonary standpoint Discussed with Dr. Myrick History of Present Illness History of Present Illness Chief Complaint: Dyspnea, chest pain Narrative: Patient is a 74 yo male with a history of lumbar stenosis and HTN, who was admitted on 03/19/25 for acute pulmonary emboli. He was ill with a URI ~2 weeks prior to admission. [place] very ill and was mostly in bed for 10 days. Home COVID testing was negative. Denied fevers. Symptoms improved, but then developed sharp, right sided chest pain, that worsened with inspiration. CTa chest in the ED showed bilateral subsegmental pulmonary embolis and a possible renal infarct. Bilateral ground glass opacities were also noted, predominantly in the lung bases. Patient reports having an aspiration episode 1 week prior to presentation, which occurred at night and woke him from sleep. He denies any prior history of VTE. No family history of VTE or spontaneous abortions. No known malignancy. No recent hospitalizations or prolonged periods of immobility. He has spent the majority of the last few weeks in bed due to a recent suspected viral illness. 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 Father , age 87 No problems noted. Sister No problems noted. Sister Alcohol abuse Substance abuse Sister No problems noted. Son No problems noted. Maternal Grandmother , age 96 No problems noted. Maternal Grandfather , age 50 Tuberculosis Paternal Grandmother , age 75 No problems noted. Paternal Grandfather , age 67 No problems noted. Social History Smoking/Tobacco Use Status: Former Tobacco Use Quit Date: 07/19/89 Second Hand Exposure: Yes Smoking risk assessment performed?: Yes Alcohol Intake: former Year quit: 2023 Drug use: Daily Substance use type: marijuana Counseling given: No Adopted: No Caregiver/Support person: No Household members: spouse Housing: house Number of Children: 3 number of grandchildren: 7 Communication Needs: None Education Level: college Details: two years Do you need help understanding health information?: Rarely current occupation: Retired<3 Pets and animals: Yes Pets and animals: cat(s) and dog(s) Sexually active: Yes Do you think of yourself as: straight/heterosexual Current gender identity: male What is your relationship status?: How often do you talk on the phone with friends or family?: twice per week How often do you get together with friends or relatives?: twice per week How often do you attend cheondoism or restoration services?: 1-3 times per year Do you belong to any clubs or organized social groups?: no Panel score (0-1 are the most socially isolated patients): 2 What type of physical activity do you participate in: bicycling and other Details: skiing Duration: 60-90 minutes/day Frequency: 3-4 times per week Morena/Zoroastrian: [place] Special morena needs: No Agree to transfusion: Yes Seatbelt use: always Helmet use: Yes Helmet use: always Drive intox or ride w/intox local [place] truck driver: No Working smoke detector in home: Yes Carbon monox detector in home: Yes Firearms in home: Yes Firearms unloaded and locked: Yes Do you feel safe at home: Yes Do you feel safe in your relationship?: Yes Victim of physical abuse: No Victim of emotional abuse: No Victim of sexual abuse: No Would you like helpful sources: No Visit Medication and Allergies Active Medications Generic Name Dose Route Start Last Admin Trade Name Freq PRN Reason Stop Dose Admin Acetaminophen 0 mg 03/19/25 11:13 Acetaminophen 325 Mg Tab PO Q4H PRN PRN Al Hydrox/Mg Hydrox/Simethicone 30 ml 03/19/25 11:13 Mylanta Suspension 30 Ml Cup PO Q2H PRN PRN Celecoxib 200 mg 03/19/25 12:23 Celecoxib 200 Mg Cap PO BID PRN PRN Pain Docusate Sodium 100 mg 03/19/25 11:13 Docusate Sodium 100 Mg Cap PO TID PRN PRN Heparin Sodium/Sodium Chloride 25,000 unit in 250 mls @ 17.5 mls/hr 03/19/25 06:45 03/20/25 07:05 IVINF 1,750 units/hr INFUSION ANDRZEJ 17.5 mls/hr Protocol Titration 1,750 UNITS/HR Sodium Chloride 1,000 mls @ 125 mls/hr 03/19/25 13:30 03/20/25 07:06 Saline 1000ml Bag IV 125 mls/hr INFUSION ANDRZEJ Administration IV Miscellaneous Supplies 1 each 03/19/25 05:15 Iv Access IV DIRECTED ANDRZEJ Magnesium Hydroxide 30 ml 03/19/25 11:13 Milk Of Magnesia 30 Ml Cup PO DAILY PRN PRN Morphine Sulfate 2 mg 03/19/25 13:14 03/20/25 02:10 Morphine 2 Mg/Ml Syr IVP 2 mg Q4H PRN PRN Administration Polyethylene Glycol 17 gm 03/19/25 11:13 Polyethylene Glycol 3350 17 Gm Packet PO DAILY PRN PRN Constipation Sodium Chloride 0 ml 03/19/25 05:01 03/19/25 13:36 Normal Saline Flush 10 Ml Syr IVP 10 ml PRN PRN Administration Sodium Chloride 0 ml 03/19/25 08:30 03/19/25 20:48 Normal Saline Flush 10 Ml Syr IVP Not Given BID ANDRZEJ Sodium Chloride 0 ml 03/19/25 05:01 Normal Saline 10 Ml Vial IJ DIRECTED PRN Sodium Chloride 0 ml 03/19/25 05:32 03/19/25 05:54 Normal Saline Flush 10 Ml Syr IVP 10 ml PRN PRN Administration Allergies losartan (Losartan) Adverse Reaction (Intermediate, Verified 03/19/25 04:56) FATIGUE Exam Narrative Exam Narrative: General: alert, no acute distress Head: normocephalic ENT: no stridor, trachea midline CV: normal rate, regular rhythm Respiratory: no wheezing, no crackles, no rhonchi, no prolonged expiration GI: abd soft, non-tender, non-distended Skin: no rashes Extremities: trace right leg edema, no digital clubbing Psych: normal affect Results Last Vital Signs Temp 37.4 C 03/20/25 04:05 Pulse 70 03/20/25 04:05 Resp 18 03/20/25 04:05 BP 161/71 H 03/20/25 04:05 Pulse Ox 93 03/20/25 04:05 Labs 03/20/25 04:05 03/20/25 04:05 Labs: Laboratory Results - last 24 hr 03/19/25 03/19/25 03/19/25 09:01 10:00 12:23 WBC RBC Hgb Hct MCV MCH MCHC RDW Plt Count MPV Immature Gran % Neutrophils % Lymphocytes % Monocytes % Eosinophils % Basophils % Nucleated RBC % Absolute Neutrophils Absolute Lymphocytes Absolute Monocytes Absolute Eosinophils Absolute Basophils PT 10.9 INR 1.1 APTT Sodium Potassium Chloride Carbon Dioxide Anion Gap BUN Creatinine Est GFR (CKD-EPI 2020) Glucose Calcium Total Bilirubin AST ALT Alkaline Phosphatase Troponin I 536 H* Total Protein Albumin Add-On Test Request DONE 03/19/25 03/19/25 03/19/25 13:15 15:15 20:45 WBC RBC Hgb Hct MCV MCH MCHC RDW Plt Count MPV Immature Gran % Neutrophils % Lymphocytes % Monocytes % Eosinophils % Basophils % Nucleated RBC % Absolute Neutrophils Absolute Lymphocytes Absolute Monocytes Absolute Eosinophils Absolute Basophils PT INR APTT 69.5 H 44.6 H Sodium Potassium Chloride Carbon Dioxide Anion Gap BUN Creatinine Est GFR (CKD-EPI 2020) Glucose Calcium Total Bilirubin AST ALT Alkaline Phosphatase Troponin I 464 H* Total Protein Albumin Add-On Test Request 03/20/25 04:05 WBC 10.54 RBC 3.97 L Hgb 12.0 L Hct 35.5 L MCV 89 MCH 30.2 MCHC 33.8 RDW 12.6 Plt Count 294 MPV 8.9 Immature Gran % 0.3 Neutrophils % 74.3 Lymphocytes % 13.3 Monocytes % 10.2 Eosinophils % 1.5 Basophils % 0.4 Nucleated RBC % 0.0 Absolute Neutrophils 7.84 H Absolute Lymphocytes 1.40 Absolute Monocytes 1.07 H Absolute Eosinophils 0.16 Absolute Basophils 0.04 PT INR APTT 99.6 H* Sodium 138 Potassium 4.1 Chloride 103 Carbon Dioxide 26.2 Anion Gap 8.8 BUN 11 Creatinine 0.6 L Est GFR (CKD-EPI 2020) 101.93 Glucose 130 H Calcium 8.2 L Total Bilirubin 0.6 AST 17 ALT 30 Alkaline Phosphatase 40 L Troponin I 397 H* Total Protein 6.6 Albumin 2.7 L Add-On Test Request Imaging CT scan - chest: report reviewed and image reviewed
[2025-03-20] MEDS: Normal Saline Flush 10 ML SYR IVP (08:06)
[2025-03-20 08:07] VITALS: BP 166/81; PULSE 69; TEMP 36.2; O2SAT 95
--- NOTE | 2025-03-20 09:25 | INITIAL_ITS ---
Date of service: 03/20/25 Time of Service: 09:25 Care Management Initial Assmt Initial Assessment Reason for Hospitalization: PE Functional Status/Living Situation Patient Presentation: Bong was standing in the room and is accompanied by his Nayana. 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 He has 3 adult children that live locally, and are supportive. He is eager to discharge and planning to go home on Eliquis, which is roughly $250. provided patient with a RX savings card for Eliquis and the cost is now $0 for 30 days. 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) Instrumental Activities of Daily Living (ADLs): Independent Medications Medication Management: No Issues/Barriers identified Advance Directives Advance Directives: Do you have an Advance Directive: N , 14:13 AD On File at [facility]: N 08/22/13, 14:13 Date Asked 03/19/25 03/19/25, 05:13 AD Date Reviewed COLST On File at [facility] COLST Date Scanned Code Status Resuscitation Status Full Code Portal Pt does not currently have a portal and education provided: Yes Insurance Coverage/Financial Issues Insurance: BC/BS [facility] Advantage - [id number] FINANCIAL ASST 100 - [id number] Care Team Visit Care Team Role Provider Type Eddie Garza NP Primary Care Provider NURSE PRACTITIONER Miguel Benitez MD Emergency Provider [facility] STAFF PHYSICIAN Yon Myrick MD Admit Provider [facility] STAFF PHYSICIAN Attending Provider Discharge Potential Discharge Needs: PCP F/U Appt Anticipated Barriers to Discharge: None Identified Patient/Family Education Needs: Review discharge instructions, discuss Ask Me Three Transportation: Private vehicle Plan: Anticipate Bong will discharge home via private vehicle with family once medically ready. Patient will follow up with community providers and discharge plan of care as directed. No services are anticipated. Social Determinants of Health Screening Social Determinants of health last assessed in clinic: 03/20/25 Will the Patient Participate in the Screening?: Yes Do you worry about having a steady place to live?: no Problems where you live: no known problems In the past 12 months, have you had to go without electric, gas, oil or water in your home?: no 1. Within the past 12 months, we worried whether our food would run out before we got money to buy more.: Never true 2. Within the past 12 months, the food we bought just didn't last and we didn't have money to get more.: Never true Has lack of transportation kept you from medical appointments or from doing things needed for daily living?: no Has anyone in your life made you feel unsafe or unsupported?: no How hard is it for you to pay for the very basics like food, housing, medical care, and heating? Would you say it is:: Not hard at all Do you want help finding or keeping work or a job?: I do not need or want help If for any reason you need help with day-to-day activities such as bathing, preparing meals, shopping, managing finances, etc., do you get the help you need?: I don?t need any help How often do you feel lonely or isolated from those around you?: Never Do you speak a language other than Korean at home?: No Does the patient want assistance with any of the above?: No PFSH All Active Problems (Updated 03/19/25 @ 15:14 by Yon Myrick MD) Lumbar stenosis (Acute) Elevated troponin (Acute) Renal infarct (Acute) Pulmonary embolism, bilateral (Acute) Myocardial injury (Acute) Trochanteric bursitis, right hip (Acute) Essential hypertension (Acute 08/01/13) Does not want treatment Migraine (Acute) resolved - discontinued ETOH use ~7 months Medical History COVID-19 Osteoarthritis Bilateral hip replacements Surgical History History of total right knee replacement (04/04/24) Status post appendectomy H/O bilateral hip replacements Family History (Updated 10/25/24 @ 11:04 by Malena Davis) Mother , age 72 No problems noted. Father , age 87 No problems noted. Sister No problems noted. Sister Alcohol abuse Substance abuse Sister No problems noted. Son No problems noted. Maternal Grandmother , age 96 No problems noted. Maternal Grandfather , age 50 Tuberculosis Paternal Grandmother , age 75 No problems noted. Paternal Grandfather , age 67 No problems noted. Social History Smoking/Tobacco Use Status: Former Tobacco Use Quit Date: 07/19/89 Second Hand Exposure: Yes Smoking risk assessment performed?: Yes Alcohol Intake: former Year quit: 2023 Drug use: Daily Substance use type: marijuana Counseling given: No Adopted: No Caregiver/Support person: No Household members: spouse Housing: house Number of Children: 3 number of grandchildren: 7 Communication Needs: None Education Level: college Details: two years Do you need help understanding health information?: Rarely current occupation: Retired<3 Pets and animals: Yes Pets and animals: cat(s) and dog(s) Sexually active: Yes Do you think of yourself as: straight/heterosexual Current gender identity: male What is your relationship status?: How often do you talk on the phone with friends or family?: twice per week How often do you get together with friends or relatives?: twice per week How often do you attend judaism or synagogue services?: 1-3 times per year Do you belong to any clubs or organized social groups?: no Panel score (0-1 are the most socially isolated patients): 2 What type of physical activity do you participate in: bicycling and other Details: skiing Duration: 60-90 minutes/day Frequency: 3-4 times per week Morena/Jewish: [employer] Special morena needs: No Agree to transfusion: Yes Seatbelt use: always Helmet use: Yes Helmet use: always Drive intox or ride w/intox commercial front load driver: No Working smoke detector in home: Yes Carbon monox detector in home: Yes Firearms in home: Yes Firearms unloaded and locked: Yes Do you feel safe at home: Yes Do you feel safe in your relationship?: Yes Victim of physical abuse: No Victim of emotional abuse: No Victim of sexual abuse: No Would you like helpful sources: No
--- NOTE | 2025-03-20 11:00 | DI.US_ITS ---
APPROVED REPORT EXAM: Comprehensive 2D, Doppler, and color-flow Echocardiogram Patient Location: In-Patient Room/Bed: 212 Crime Specialist: Parviz Neumann RDCS (AE) Indications: Pulmonary embolism Echo Enhancing Agent Indication: Rule out Shunt Agent(s) / Amount(s) Used: Agitated Saline 30.0 cc Comments: Contrast study was performed with 3 IV injections of 10ccs of agitated normal saline, at rest, with cough and post valsalva maneuver. Other Information Study Quality: Adequate Conclusion Normal left ventricular wall thickness and chamber size. Ejection fraction is 60%. Wall motion is normal Normal right ventricular size and function Both atria are normal in size No intracardiac shunting is identified with injection of agitated saline There are no structural valvular abnormalities Mild mitral and tricuspid regurgitation. Estimated right ventricular systolic pressure is 36 mmHg Wall motion Left Ventricle Left ventricle is mildly dilated. The left ventricular systolic function is normal. The left ventricular ejection fraction is within the normal range. There is normal left ventricular wall thickness. There is normal LV segmental wall motion. There is no ventricular septal defect visualized. LVEF is 60%. Right Ventricle The right ventricle is normal size. The right ventricular systolic function is normal. Atria The left atrium size is normal. The right atrium size is normal. Saline bubble contrast intravenous injection does not demonstrate PFO. Aortic Valve The aortic valve is mildly sclerotic. There is no aortic valvular stenosis. Trace to mild aortic regurgitation. Mitral Valve The mitral valve is normal in structure. No evidence of mitral valve stenosis. Mild mitral regurgitation. Tricuspid Valve The tricuspid valve is normal in structure. There is no tricuspid valve stenosis. Mild tricuspid regurgitation. The RVSP is 36.2 mmHg. Pulmonic Valve The pulmonary valve is normal in structure. There is no pulmonic valvular stenosis. There is no pulmonic valvular regurgitation. Great Vessels The aortic root is normal in size. Ascending aorta is not well visualized. Aortic arch is normal in caliber. IVC is normal in size and collapses >50% with inspiration. Pericardium There is no pericardial effusion. 2D Dimensions IVSD d PLAX 1.03 cm M: 0.6-1.2 Ao Root d 3.32 cm M: 3.1 - 3.7 LVPW d PLAX 1.04 cm M: 0.6 - 1.2 LVID d PLAX 6.48 cm M: 4.2 - 5.8 LVDs 4.36 cm M: 2.5 - 4.0 LV EF Teichholz 59.9 % FS 32.63 % LV EDV (Teich) 214.4 mL LV ESV (Teich) 86.0 mL Stroke Vol Index (Teich) 60.84 M-Mode TAPSE 2.87 cm (M/F) >1.7 Auto EF LV EDV A4C 165.7 mL LV EDV A2C 160.0 mL LV EDV BP 167.9 mL LV ESV A4C 66.9 mL LV ESV A2C 64.3 mL LV ESV BP 65.8 mL LVEF(%) A4C 59.6 % LVEF(%) A2C 59.8 % LVEF(%) BP 60.8 % LV SV A4C 98.8 ml LV SV A2C 95.7 ml LV SV BP 102.1 ml LV CO A4C 6.6 L/min LV CO A2C 5.9 L/min LV CO BP 6.2 L/min HR A4C 66.28 BPM HR A2C 61.33 BPM LV EDV Index (BP) LA Volume LA Length A4C 5.6 cm LA Length A2C 5.4 cm LA Area A4C s 15.10 cm2 LA Area A2C s 14.93 cm2 LA Vol A4C A-L 34.37 mL LA Vol A2C A-L 34.80 mL LA Vol Biplane A-L 35.2 mL LA Vol/BSA A4C A-L LA Vol/BSA A2C A-L LA Vol/BSA BP A-L 16.7 mL/m2 LA Vol A4C MOD 34.5 mL LA Vol A2C MOD 32.5 mL LA Vol BP MOD 33.3 mL RA Volume RA Area A4C 12.6 cm2 RA ESV A4C (A-L) 23.5mL RA Vol/BSA A4C A-L RA Length A4C 5.7 cm RA ESV A4C (MOD) 22.3mL LV Diastology MV E' medial 0.092 (>0.07 m/s) MV E Vmax 1.05 (0.4-1.3 m/s) MV E/E' MED 11.46 (<14) MV A Vmax 1.00 (0.4-1.3 m/s) MV E' lateral 0.108 (>0.1 m/s) E/A Ratio 1.0 MV E/E' LAT 9.76 (<14) MV E' Average 0.100 m/s MV E/E'(average) 10.54 Aortic Valve AoV Vmax 1.62 m/s LVOT Vmax 1.24 m/s AoV Peak Grad 58.5 mmHg LVOT Peak Grad 6.1 mmHg AoV Area (Vmax) 2.99 cm2 LVOT VTI 0.288 m AoV VTI 0.384 m LVOT Mean Grad 3.3 mmHg AoV Mean [place]. 1.12 m/s LVOT SV 113.03 mL AoV Mean Grad 5.7 mmHg LVOT Diam s 2.20 cm AoV Area (VTI) 2.95 cm2 AV Regurg Peak Gr. 10.50 mmHg Velocity Ratio 0.77 AR Decel [place] 3.6m/sec2 AR DT 1415 msec AR PHT 410 msec AR Vmax 5.16 m/s Mitral Valve MV DT 231 (160-240 msec) Pulmonary Valve PV Vmax 0.79 (0.5-1.5 m/s) RVOT Vmax 0.46 m/s PV Peak Grad 2.5 mmHg RVOT Peak Gr. 0.9 mmHg PV Mean [place] 0.56 m/s RVOT VTI 0.078 m PV Mean Grad 1.4 mmHg RVOT Mean Gr. 0.5 mmHg Tricuspid Valve RA Pressure 3.00 mmHg TR Vmax 2.88 m/s TR Peak Grad 33.2 mmHg RVSP (TR) 36.2 mmHg
[2025-03-20 11:46] LABS: PTT Activated 54.5 sec (20.6-30.2)
--- NOTE | 2025-03-20 14:04 | PDOC.CMDIS ---
Date of service: 03/20/25 Time of Service: 14:04 LACE Index Scoring Tool Questions: Length of Stay (in days): 1 Was the patient admitted via the E.D.?: Yes E.D. Visits: 1 Answers: Total Score: 5 Risk of Readmission: Low Risk Care Management Discharge Plan Reason for Hospitalization: PE Discharge Plan: Supa is discharged home via private vehicle with a New RX for Eliquis, $0 for 30 day saving card applied. Bong will follow up with community providers and his discharge plan of care as directed. No new services are ordered prior to discharge. Patient/Family Education Needs: Review discharge instructions and plan to follow up after discharge. Discuss ask me three. SDOH Health Related Social Needs: Health related social needs details none
--- NOTE | 2025-03-20 14:07 | W.PM.DS.N ---
Date of service: 03/20/25 Time of Service: 14:07 DS: Diagnosis Discharge Diagnosis (1) Essential hypertension: Status: Acute (2) Pulmonary embolism, bilateral: Status: Acute (3) Renal infarct: Status: Acute (4) Elevated troponin: Status: Acute (5) Lumbar stenosis: Status: Acute Discharge Plan Disposition Patient Disposition: Home Condition: Stable Discharge Details Reason For Visit: PE Admit Date/Time: 03/19/25 11:13 Admit Provider: Yon Myrick Attending Provider: Yon Myrick Primary Care Provider: Eddie Garza Hospital Course Hospital Course: History of Present Illness History of Present Illness Chief Complaint: pleuritic chest pain Narrative: This is a 74-year-old gentleman who presents to the ED today with pleuritic chest pain. Patient states that he has been feeling somewhat ill over the last 10 days and thought he had COVID. He did do a COVID test in the outpatient setting but results were negative. He does have concerned that he did not perform the test correctly at home. Doing to his illness the patient has not been able to get out of bed very easily or regularly. Yesterday he stated he felt much better but this morning developed pleuritic chest pain and came into the ED for further evaluation and treatment. While he was in the ED he was noted to have a pulmonary embolism which was found on CT angiogram. Further workup indicated a left sided renal renal infarction. In reviewing the other results from the CT he does have a mild elevation in his aortic thoracic aortic diameter. Patient was also noted to have severe spinal canal stenosis at L4-5. I did asked the ED to call down to [facility] for further clarifications and Dr. Benitez did discuss the case with vascular surgery who did not recommend transfer but did recommend a CT angiogram sooner rather than later. Patient was subsequently mated to the hospital service for further treatment. Patient's Pesi score is 113 putting him at a higher risk class IV. Of note, this is based on a potential malignancy that has not been proven. Other diagnostic data white count of 12.76. Hemoglobin hematocrit 12.7/37.7. INR is 1.1 hypercoagulable panel was pending. pH was 7.44 with PCO2 of 36 PO268. BUN/creatinine is 20/0.9. Troponins done on admission showed a value of 715 had a high of 733 and is currently 536 with another 1 pending at this afternoon. EKG shows a heart rate of 79 prolonged MD interval. Normal axis. No ST elevation or depression. Assessment and Plan Assessment and plan (1) Essential hypertension: Status: Acute Assessment and plan: pt has refused rx in the past (2) Pulmonary embolism, bilateral: Status: Acute Assessment and plan: Pt is on heparin drip. Plan on keeping it on overnight and change to oral anticoagulant in the am. Troponins elevated but improving (3) Renal infarct: Status: Acute Assessment and plan: Per ED, case was discussed with vascular at [facility] who did not recommend further intervention and a ct angio at some point. Will cw ivf and consider ct angio in 24-48 hours. Pt did get a dye load during last CT rule out PE (4) Elevated troponin: Status: Acute Assessment and plan: trending down, repeat labs pending (5) Lumbar stenosis: Status: Acute Assessment and plan: asymptomatic, outpatient follow up at discretion of PCP General Date Of Service Date of service: 03/20/25 Time of Service: 07:30 Requesting physician: Miguel Benitez Reason for Consult: Pulmonary embolism Recommendations: Assessment: 1. Acute pulmonary embolism 2. Pulmonary infiltrates 3. Renal lesion - ? infarct 4. Hx tobacco use - quit ~30 years ago Plan: - ok to transition to Xa inhibitor (eliquis or xarelto). Plan for a minimum of 3 months of anticoagulation. Will see in clinic to re-evaluate before his course is completed - will follow up on the hypercoagulable workup - agree with echo, given possible renal infarct, need to consider right to left shunt - will plan to repeat imaging in 2-3 months to re-evaluate the pulmonary infiltrates - provided that no concerning findings are seen on echo, OK for discharge from a pulmonary standpoint Discussed with Dr. Myrick History of Present Illness History of Present Illness Chief Complaint: Dyspnea, chest pain Narrative: Patient is a 74 yo male with a history of lumbar stenosis and HTN, who was admitted on 03/19/25 for acute pulmonary emboli. He was ill with a URI ~2 weeks prior to admission. [place] very ill and was mostly in bed for 10 days. Home COVID testing was negative. Denied fevers. Symptoms improved, but then developed sharp, right sided chest pain, that worsened with inspiration. CTa chest in the ED showed bilateral subsegmental pulmonary embolis and a possible renal infarct. Bilateral ground glass opacities were also noted, predominantly in the lung bases. Patient reports having an aspiration episode 1 week prior to presentation, which occurred at night and woke him from sleep. He denies any prior history of VTE. No family history of VTE or spontaneous abortions. No known malignancy. No recent hospitalizations or prolonged periods of immobility. He has spent the majority of the last few weeks in bed due to a recent suspected viral illness. ROS: 10 pt ROS negative except as above CT scan IMPRESSION: 1. Which she area of decreased attenuation in the left kidney. Differential considerations include renal infarcts versus pyelonephritis. Neoplasm cannot be definitely excluded. 2. Colonic diverticulosis without evidence of acute diverticulitis. 3. Marked central spinal canal stenosis at L4-L5 secondary to the degenerative changes. 4. Bilateral lower lobe pulmonary emboli. The RV to LV ratio is less than 1. 5. Bilateral pulmonary infiltrates. Differential considerations include atelectasis, pneumonia, pulmonary edema or possible pulmonary infarct. 6. The preliminary [facility] report was reviewed. Renal USN IMPRESSION: No abnormality of the left kidney is identified by ultrasound as was noted on recent CT. Elevated postvoid residual. Conclusion-Echo Normal left ventricular wall thickness and chamber size. Ejection fraction is 60%. Wall motion is normal Normal right ventricular size and function Both atria are normal in size No intracardiac shunting is identified with injection of agitated saline There are no structural valvular abnormalities Mild mitral and tricuspid regurgitation. Estimated right ventricular systolic pressure is 36 mmHg Patient was admitted for a PE and did have an appropriate PESI score for admission. Patient was seen in consultation with pulmonology and their consultation is attached above. While he was in the hospital he also had an echocardiogram renal ultrasound as well as a CT of his chest abdomen and pelvis with results attached above. On the second after his studies were done I recommended discharge to which he readily agreed. Patient will need to be on Eliquis. I did discuss with the patient that although there is no sign of malignancy and most likely the pulmonary emboli occurred secondary to occult COVID that it would be appropriate to be vigilant for changing signs and symptoms. There is a correlation between occult pulmonary emboli and malignancy now with recommend keeping up-to-date with all appropriate screening recommendations. In regards to his CT scan, I believe most likely explanation for the findings in his left kidney are in fact a renal infarct. Patient need to have follow-up for his hypercoagulable panel. Discharged in good health. Of note, pt did have elevations in his troponins but his ekg did not indicate ACS. Troponins were trending down throughout his stay. Recommendations for Follow Up Recommended tests to be ordered by follow up provider: follow up with Hypercoagulable panel Lyme and tick panel pending Home Meds and New Rx's Prescriptions: New Eliquis 5 mg tablet 5 mg PO BID Qty: 60 0RF Rx Instructions: Eliquis 10mg PO bid for seven days, then 5mg po bid after oxycodone 10 mg tablet 10 mg PO Q8H PRNQty: 14 0RF Continued celecoxib [Celebrex] 200 mg capsule 200 mg PO BID PRN (Reason: pain) Qty: 60 1RF Patient Comments: Pt states PRN only not every day but when his knee acts up. Rx Instructions: Take one tablet twice daily for pain and inflammation Discharge Instructions Stand Alone Forms: Nursing Discharge Form Referrals: Eddie Garza SCREW SUPERVISOR [Primary Care Provider, Medicine] Referral Note: follow up in 5-7 days Bong Tapia MD [ [facility] STAFF PHYSICIAN, Pulmonology] Referral Note: follow up in 2-4 weeks Activity:: Activity as Tolerated Equipment/Supplies:: No Equipment Needed Diet:: As Tolerated Discharge Orders Discharge Orders: Discharge Order (Routine); Ordered 03/20/25 Ordered By: Yon Myrick DS: Summary Time Spent with Patient providing and/or coordinating discharge services: Greater than 30 minutes Status at Discharge Functional status at discharge: independent ambulation Overall status at discharge: patient is back to baseline Mental Status: mental status grossly normal Speech and Movement: speech and movement normal Mood: congruent mood Affect: normal affect Quality:SDOH Health Related Social Needs: Health related social needs details none Exam Narrative Exam Narrative: General: alert, no acute distress Head: normocephalic ENT: no stridor, trachea midline CV: normal rate, regular rhythm Respiratory: no wheezing, no crackles, no rhonchi, no prolonged expiration GI: abd soft, non-tender, non-distended Skin: no rashes Extremities: trace right leg edema, no digital clubbing Psych: normal affect Psych Mental Status: mental status grossly normal Speech and Movement: speech and movement normal Mood: congruent mood Affect: normal affect DS: Data Vitals/I&O Vitals and I&O: Vital Signs Temperature 36.2 C L 03/20/25 08:07 Temperature Source Temporal Artery Scan 03/20/25 08:07 Pulse 69 03/20/25 08:07 Pulse Rhythm Irregular 03/19/25 12:08 Pulse 66 03/19/25 11:50 Respiratory Rate 18 03/20/25 04:05 Respiratory Effort Normal, Non-Labored 03/19/25 12:08 Respiratory Depth Shallow 03/19/25 12:08 Respiratory Pattern Normal 03/19/25 12:08 Blood Pressure 166/81 H 03/20/25 08:07 Blood Pressure Mean 109 03/20/25 08:07 Blood Pressure Position Sitting 03/19/25 04:49 Pulse Oximetry 95 03/20/25 08:07 Oxygen Delivery Method Room Air 03/20/25 08:07 Oxygen Flow Rate 0 03/20/25 08:07 Pain Level 7 03/20/25 08:03 Comment pt unable to rate pain 03/19/25 04:49 Intake & Output 03/19/25 03/20/25 03/20/25 23:59 11:59 23:59 Intake Total 1548.333 / 2148.333 175.817 / 175.817 Output Total 300 / 300 Balance 1248.333 / 1848.333 175.817 / 175.817 Weight 95.4 kg 95.7 kg Intake: IV 1308.333 / 1908.333 175.817 / 175.817 Oral 240 / 240 Output: Urine 300 / 300 Other: Urine Color Yellow Yellow Urine Appearance Clear Urine Odor Normal Normal Comment independent in room Data Completed and Pending Labs on day of discharge: Labs from last 24 hours 03/20/25 03/20/25 03/19/25 11:06 04:05 20:45 WBC 10.54 RBC 3.97 L Hgb 12.0 L Hct 35.5 L MCV 89 MCH 30.2 MCHC 33.8 RDW 12.6 Plt Count 294 MPV 8.9 Immature Gran % 0.3 Neutrophils % 74.3 Lymphocytes % 13.3 Monocytes % 10.2 Eosinophils % 1.5 Basophils % 0.4 Nucleated RBC % 0.0 Absolute Neutrophils 7.84 H Absolute Lymphocytes 1.40 Absolute Monocytes 1.07 H Absolute Eosinophils 0.16 Absolute Basophils 0.04 APTT 54.5 H 99.6 H* 44.6 H Sodium 138 Potassium 4.1 Chloride 103 Carbon Dioxide 26.2 Anion Gap 8.8 BUN 11 Creatinine 0.6 L Est GFR (CKD-EPI 2020) 101.93 Glucose 130 H Calcium 8.2 L Total Bilirubin 0.6 AST 17 ALT 30 Alkaline Phosphatase 40 L Troponin I 397 H* Total Protein 6.6 Albumin 2.7 L PSA Screen Pending 03/19/25 15:15 WBC RBC Hgb Hct MCV MCH MCHC RDW Plt Count MPV Immature Gran % Neutrophils % Lymphocytes % Monocytes % Eosinophils % Basophils % Nucleated RBC % Absolute Neutrophils Absolute Lymphocytes Absolute Monocytes Absolute Eosinophils Absolute Basophils APTT Sodium Potassium Chloride Carbon Dioxide Anion Gap BUN Creatinine Est GFR (CKD-EPI 2020) Glucose Calcium Total Bilirubin AST ALT Alkaline Phosphatase Troponin I 464 H* Total Protein Albumin PSA Screen PFSH All Active Problems (Updated 03/19/25 @ 15:14 by Yon Myrick MD) Lumbar stenosis (Acute) Elevated troponin (Acute) Renal infarct (Acute) Pulmonary embolism, bilateral (Acute) Myocardial injury (Acute) Trochanteric bursitis, right hip (Acute) Essential hypertension (Acute 08/01/13) Does not want treatment Migraine (Acute) resolved - discontinued ETOH use ~7 months Medical History COVID-19 Osteoarthritis Bilateral hip replacements Surgical History History of total right knee replacement (04/04/24) Status post appendectomy H/O bilateral hip replacements Family History (Updated 10/25/24 @ 11:04 by Malena Davis) Mother , age 72 No problems noted. Father , age 87 No problems noted. Sister No problems noted. Sister Alcohol abuse Substance abuse Sister No problems noted. Son No problems noted. Maternal Grandmother , age 96 No problems noted. Maternal Grandfather , age 50 Tuberculosis Paternal Grandmother , age 75 No problems noted. Paternal Grandfather , age 67 No problems noted. Social History Smoking/Tobacco Use Status: Former Tobacco Use Quit Date: 07/19/89 Second Hand Exposure: Yes Smoking risk assessment performed?: Yes Alcohol Intake: former Year quit: 2023 Drug use: Daily Substance use type: marijuana Counseling given: No Adopted: No Caregiver/Support person: No Household members: spouse Housing: house Number of Children: 3 number of grandchildren: 7 Communication Needs: None Education Level: college Details: two years Do you need help understanding health information?: Rarely current occupation: Retired<3 Pets and animals: Yes Pets and animals: cat(s) and dog(s) Sexually active: Yes Do you think of yourself as: straight/heterosexual Current gender identity: male What is your relationship status?: How often do you talk on the phone with friends or family?: twice per week How often do you get together with friends or relatives?: twice per week How often do you attend anabaptist or mu-ism services?: 1-3 times per year Do you belong to any clubs or organized social groups?: no Panel score (0-1 are the most socially isolated patients): 2 What type of physical activity do you participate in: bicycling and other Details: skiing Duration: 60-90 minutes/day Frequency: 3-4 times per week Morena/Roman Catholic: [employer] Special morena needs: No Agree to transfusion: Yes Seatbelt use: always Helmet use: Yes Helmet use: always Drive intox or ride w/intox crew truck driver: No Working smoke detector in home: Yes Carbon monox detector in home: Yes Firearms in home: Yes Firearms unloaded and locked: Yes Do you feel safe at home: Yes Do you feel safe in your relationship?: Yes Victim of physical abuse: No Victim of emotional abuse: No Victim of sexual abuse: No Would you like helpful sources: No Time Spent with Patient Time Spent with Patient: 45-69 minutes Time was spent: preparing to see the patient(eg.review tests), obtaining and/or reviewing separately otained hiistory, ordering medications,tests, procedures, referring, communicating with other health skin care specialist, indepentently interpreting results, counseling the patient and care coordination
[2025-03-20 20:22] LABS: PSA, Screening 0.6 ng/mL (<=6.5)
[2025-03-21 10:03] LABS: Alpha 1 Antitrypsin,Serum 190 mg/dL (90-200)
[2025-03-21 11:28] LABS: Lyme Ab w Rflx to Lyme Confirm Negative (Negative)
[2025-03-22 10:47] LABS: Protein S Ag, Free 89 % (65 - 160)
[2025-03-22 17:52] LABS: B. miyamotoi PCR Negative (Negative); Babesia divergens/MO-1 Negative (Negative); Ehrlichia muris eauclairensis Negative (Negative)
[2025-03-23 13:23] LABS: Protein C Ag, P 72 % (72-160)
[2025-03-26 10:26] LABS: Factor V Leiden(R506Q) Mut Negative (Negative)
== END 2025-03-20 15:34 | disposition home or self-care (01) | DRG 176 ==
LOC: ER 11:03 → MS 12:01
PROVIDERS: Emergency Medicine; Family Medicine; Admitting Provider Hospitalist; Emergency Provider Emergency Medicine; PCP Nurse Practitioner Family; Responsible Provider Hospitalist; Visit Provider Hospitalist
DX: I26.99 Other pulmonary embolism without acute cor pulmonale (principal); N28.0 Ischemia and infarction of kidney; I10 Essential (primary) hypertension; M48.061 Spinal stenosis, lumbar region without neurogenic claudication; M70.61 Trochanteric bursitis, right hip; Z96.643 Presence of artificial hip joint, bilateral; Z96.651 Presence of right artificial knee joint
CPT/HCPCS: 00123; 36415; 71275; 74177; 76770; 80053; 81241; 82805; 83690; 84153; 85302; 85305; 87637; 87798; 93005; 93306; 93308; 96365; 96366; 96367; 99222; 99285; 81003; 82103; 83605; 83735; 84484; 85025; 85610; 85730; 86618; 93010; 99239; J0131; J1644; J2270; J3490

== ENCOUNTER → 2025-03-20 15:20 | Outpatient (BNVA) | payer MEDICARE, SELFPAY | PROVIDERS: PCP Nurse Practitioner Family; Referring Provider Nurse Practitioner Family; Visit Provider Internal Medicine Pulmonary Disease | DX: I26.99 Other pulmonary embolism without acute cor pulmonale (principal); R91.8 Other nonspecific abnormal finding of lung field; N28.0 Ischemia and infarction of kidney | CPT/HCPCS: 99214 ==

== ENCOUNTER 2025-03-26 09:43 | Outpatient (CLI) | payer MEDICARE, SELFPAY ==
[2025-03-26 14:18] LABS: Anion Gap 7.2 mmol/L (3-11); BUN 18 mg/dL (7-18); CO2 26.8 mmol/L (21.0-32.0); Calcium 9.5 mg/dL (8.5-10.1); Chloride 103 mmol/L (98-107); Estimated GFR 93.45 (mL/min/1.73m2); Glucose 92 mg/dL (74-106); Potassium 4.2 mmol/L (3.5-5.1); Sodium 137 mmol/L (136-145)
== END 2025-03-26 09:44 | disposition home or self-care (01) ==
LOC: LOS 09:43
PROVIDERS: PCP Nurse Practitioner Family; Referring Provider Family Medicine; Visit Provider Family Medicine
DX: N28.0 Ischemia and infarction of kidney (principal); I10 Essential (primary) hypertension
CPT/HCPCS: 36415; 80048

== ENCOUNTER → 2025-04-04 12:46 | Outpatient (BNVA) | payer MEDICARE, SELFPAY | PROVIDERS: PCP Nurse Practitioner Family; Referring Provider Nurse Practitioner Family; Visit Provider Internal Medicine Pulmonary Disease | DX: I26.99 Other pulmonary embolism without acute cor pulmonale (principal); N28.0 Ischemia and infarction of kidney; R91.8 Other nonspecific abnormal finding of lung field; I10 Essential (primary) hypertension | CPT/HCPCS: 99214 ==

== ENCOUNTER 2025-04-05 14:04 | Outpatient (CLI) | payer MEDICARE, SELFPAY ==
--- NOTE | 2025-04-05 08:15 | DI.RAD_ITS ---
Exam(s) XR KNEE RT 2V AP,LAT EXAM: XR KNEE RT 2V AP,LAT CLINICAL HISTORY: ANNUAL F/U R TKA. TECHNIQUE: 2D digital imaging was performed. Two images were obtained. AP and lateral views were obtained. COMPARISON: CR XR KNEE RT 3V AP,LAT,DO from 12/09/2023 CR XR KNEE RT 1V from 04/17/2024 CR XR STANDING ALIGNMENT from 04/17/2024 FINDINGS: BONES: There are stable post operative changes of a right total knee arthroplasty present. No fracture or dislocation. There is an enthesophyte at the superior patella. JOINTS: The orthopedic hardware is in good position. No evidence of hardware loosening. SOFT TISSUE: Normal. IMPRESSION: Stable right total knee arthroplasty. DATA REPOSITORY: RADIATION DOSE DELIVERED:
== END 2025-04-05 14:05 | disposition home or self-care (01) ==
LOC: DIORS 14:04
PROVIDERS: PCP Nurse Practitioner Family; Visit Provider Physician Assistant
DX: Z47.1 Aftercare following joint replacement surgery (principal); Z96.651 Presence of right artificial knee joint
CPT/HCPCS: 99213; 73560

== ENCOUNTER 2025-04-06 02:08 | Outpatient (CLI) | payer MEDICARE, SELFPAY ==
[2025-04-06] MEDS: Normal Saline - Diluent 50 ML VIAL IJ (14:13)
[2025-04-06] MEDS: Normal Saline Flush 10 ML SYR IVP (14:13)
[2025-04-06] MEDS: Omnipaque 350 MG/ML 100 ML BTL IJ (14:14)
--- NOTE | 2025-04-06 14:16 | DI.CT_ITS ---
Exam(s) CT ABDOMEN/RENAL CTA EXAM: CT ABDOMEN/RENAL CTA CLINICAL HISTORY: Eval LEFT renal infarction,n28.0. TECHNIQUE: Imaging Protocol: Axial computed tomography images with coronal and sagittal reformatted images were created and reviewed CONTRAST MATERIAL: Intravenous: Omnipaque 350 Contrast volume:100 ml Oral: None COMPARISON: CT CT CHEST PE ABD PELVIS W from 03/19/2025 FINDINGS: Uppermost images reveal clear lung bases. The bilateral infiltrates seen in the lower lobes on 03/19/2025 CT scan have resolved and there are no pleural effusions. Please note that there were apparently also bilateral pulmonary emboli. Cannot compare as this is not pulmonary embolus study and imaging was obtained to highlight the abdominal aorta and its arteries. ABDOMEN CTA: The field of view of this study is of the abdominal aorta to mid aspect of the common iliac arteries. There is no evidence of abdominal aortic aneurysm. Maximum diameter of the abdominal aorta is 2.5 cm. The celiac artery and superior mesenteric artery and inferior mesenteric artery are patent. There is a moderate stenosis at the origin of the celiac artery. There is no stenosis in the proximal superior mesenteric artery and no evidence of intraluminal filling defects within the SMA. The inferior mesenteric artery is patent. With respect of the renal arteries, there appears to be a solitary renal artery in each side. Partially calcified plaque is noted in the proximal right renal artery but no high-grade stenosis at this level. There is also some calcified plaque at the origin of the left renal artery with mild stenosis at this level. No poststenotic dilatation of the vessel evident. The left renal artery bifurcates 1.5 cm distal to its origin and branch vessels appear patent. There are no renal artery aneurysms evident. Also no evidence of obvious fibromuscular dysplasia of the renal arteries. There do not appear to be accessory renal arteries on either side. KIDNEYS: Right kidney unremarkable. In the left kidney the previously described area of abnormal predominately cortical hypodensity exhibits minimal if any significant change when compared to the CT scan of 03/19/2025. The amount of perinephric streaking around the left kidney appears slightly less than previous. There are no radiopaque calculi in the kidneys. No hydronephrosis nor hydroureter. No renal cysts. Both renal veins are patent. No intraluminal thrombus evident within the renal veins. There is no ascites. LIVER: There are no focal hepatic lesions nor dilatation of intrahepatic ducts. Liver is somewhat hypodense implying an element of steatosis. GALLBLADDER/BILIARY: No obvious gallbladder pathology. CBD is not dilated. PANCREAS: No evidence of pancreatic mass nor dilatation of the pancreatic duct. SPLEEN: Spleen is not enlarged. There are no intrasplenic lesions. Splenic and portal veins are patent. ADRENALS: There are no significant adrenal masses. KIDNEYS: No cysts evident. No calculi nor hydronephrosis. No solid renal masses. ABDOMINAL AORTA: The abdominal aorta is not enlarged. LYMPH NODES: There is no retroperitoneal nor para-aortic adenopathy. No obvious mesenteric masses. ABDOMINAL WALL: No evidence of significant anterior abdominal wall hernia in the field of view of this abdomen only study.. GI: There is no evidence of bowel obstruction, free air, nor abscess. OSSEOUS: No fractures nor significant osseous lesions. However, there are chronic degenerative disc disease changes at multiple levels. There is also degenerative anterolisthesis of L4 upon L5. There is severe spinal canal stenosis at this level. IMPRESSION: 1. Compared to the CT scan of 03/19/2025 the previously described abnormal partially confluent areas of hypodensity in the left renal cortex exhibit very little if any significant change and are again suggestive of probable infarcts. Pyelonephritis is also significant consideration in the differential diagnosis and neoplasm cannot be completely excluded. These findings require correlation with the patient's clinical history. The opposite-right kidney remains unremarkable in appearance. 2. There is mild calcified plaque in the proximal renal arteries but no high- grade stenosis on either side. No obvious fibromuscular dysplasia. No renal artery aneurysms. No obvious accessory renal arteries. No evidence of renal vein thrombosis. 3. Incidentally noted is severe central spinal canal stenosis at L4-5 level where there is an element of degenerative anterolisthesis of L4 upon L5. Please note the entire lumbar spine is not included in the field of view of this study. RADIATION DOSE DELIVERED: Total DLP DATA REPOSITORY: All CT scans at this facility are submitted to the National Radiology Data Registry (NRDR) Dose Index Registry (DIR) with the [employer] (ACR). RADIATION OPTIMIZATION: All CT scans at this facility use at least one of these dose optimization techniques: automated exposure control; mA and/or kV adjustment per patient size (includes targeted exams where dose is matched to clinical indication); or iterative reconstruction.
== END 2025-04-06 02:28 ==
LOC: DI 02:08
PROVIDERS: PCP Nurse Practitioner Family; Visit Provider Family Medicine
DX: N28.0 Ischemia and infarction of kidney (principal)
CPT/HCPCS: 71275; J3490

== ENCOUNTER → 2025-06-20 00:59 | Outpatient (CLI) | payer MEDICARE, SELFPAY ==
--- NOTE | 2025-06-20 06:15 | DI.CT_ITS ---
Exam(s) CT CHEST WO EXAM: CT CHEST WO CLINICAL HISTORY: pulmonary infiltrates,r91.8. TECHNIQUE: Imaging protocol: Axial computed tomography images were obtained and coronal and sagittal reformatted images were created and reviewed. Lung Computer Aided Detection (CAD) was utilized. COMPARISON: CT CT CHEST PE ABD PELVIS W from 03/19/[address] ABDOMEN/RENAL CTA from 04/06/2025 FINDINGS: Tracheobronchial tree: Patent where visualized. No bronchiectasis is present. Pulmonary parenchyma: No consolidation or dominant measurable mass. No architectural distortion. Mediastinum and Angie: No dominant adenopathy or fluid collection. The esophagus is unremarkable.There is a small hiatal hernia. Thyroid gland: Unremarkable. Pleura: No effusion or pneumothorax. Heart: The heart is not dilated. Coronary artery calcifications are present. No pericardial effusion. Aorta: The ascending thoracic aorta measures 4.4 x 4.0 cm. Atherosclerotic calcification is present. Upper abdomen: Unremarkable. Lymph nodes: Within normal limits. Soft tissues: Incidental note is again made of a 4.7 cm lipoma lateral to the left scapula. Bones:Within normal limits for the patient's age. There is marked osteoarthritis of the shoulders bilaterally. IMPRESSION: There is no acute pulmonary process. There has been complete resolution of the pulmonary infiltrates. RADIATION DOSE DELIVERED: 292.54mGy.cm Total DLP 292.54mGy.cm Total DLP DATA REPOSITORY: All CT scans at this facility are submitted to the National Radiology Data Registry (NRDR) Dose Index Registry (DIR) with the [employer] (ACR). RADIATION OPTIMIZATION: All CT scans at this facility use at least one of these dose optimization techniques: automated exposure control; mA and/or kV adjustment per patient size (includes targeted exams where dose is matched to clinical indication); or iterative reconstruction.
== END ==
LOC: DI 01:00
PROVIDERS: PCP Nurse Practitioner Family; Visit Provider Internal Medicine Pulmonary Disease
DX: R91.8 Other nonspecific abnormal finding of lung field (principal)
CPT/HCPCS: 71250

== ENCOUNTER 2025-06-29 01:50 | Outpatient (CLI) | payer MEDICARE, SELFPAY ==
--- NOTE | 2025-07-04 13:30 | W.PFT ---
Date of service: 06/29/25 Time of Service: 08:05 Pulmonary Function Test Result Indications: Pulmonary infiltrates Impression 1. Good patient effort was noted. ATS standards for reproducibility were met. 2. Normal spirometry. 3. TLC was normal. No evidence of restrictive lung disease 4. DLCO was normal indicating normal alveolar gas exchange
== END 2025-06-29 01:51 | disposition home or self-care (01) ==
LOC: RT 01:50
PROVIDERS: PCP Nurse Practitioner Family; Visit Provider Internal Medicine Pulmonary Disease
DX: R91.8 Other nonspecific abnormal finding of lung field (principal)
CPT/HCPCS: 94010; 94726; 94729

== ENCOUNTER → 2025-07-03 09:27 | Outpatient (BNVA) | payer MEDICARE, SELFPAY | PROVIDERS: PCP Nurse Practitioner Family; Referring Provider Nurse Practitioner Family; Visit Provider Internal Medicine Pulmonary Disease | DX: I26.99 Other pulmonary embolism without acute cor pulmonale (principal); N28.0 Ischemia and infarction of kidney; Z87.891 Personal history of nicotine dependence | CPT/HCPCS: 99214 ==